=== PATIENT | female | born 1960 | race Two or more races ===

== ENCOUNTER → 2022-03-13 | Outpatient (CLI) | payer OTHER, SELFPAY ==
--- NOTE | 2022-03-13 | IMM_PTH ---
PATIENT: JORDON INMAN LOC: [facility] U#:[id number] AGE/SX: 62/F ROOM: RE03/13/[address]: Dr. Van Machuca MD : 1960 BED: DIS: 03/13/2022 SPEC #: [id number] RECD: 03/14/22 15:33 STATUS: STORM REDarryl #: [id number] MIGUEL: 03/13/22 00:[address]: Van Machuca DEPT: IMMUNOHISTOCHEMISTRY RECD BY: Maddy Chambers ENTERED: 03/14/22 15:34 SP TYPE: IMMUNO OTHR DR: CAROLYNN Rojas Tissues: A - Left breast, NOS Procedures: CALPONIN-1 (add) CK5-6 (add) CK8 (add) E-CAD (add) HER2 DOMITILA (add) KI-67 (add) P53 (add) KY (add) P40 (add) ER (initial) PHYSICIAN & [address] [address] SPECIMEN INFORMATION: Tissue Source: A ? Left breast core tissue 12 o?clock Clinical Info: Left breast calcifications 12 and 1 o?clock Specimen Number: [id number] A2 CPT code: 80241, 78428 x6, 42359 x3 METHODOLOGY: Deparaffinized sections of prefer/formalin-fixed tissue or PAP/DQ stained slides are incubated with monoclonal/polyclonal antibodies/oligonucleotide probes. Localization is made via biotin free immunoperoxidase method. Appropriate controls are performed and reacted as expected. Results on target cell population are indicated in the following table: RESULTS: ANTIBODY / CLONE RESULT Block A2 P53 (DO-7) negative Ki-67 (30-9) positive, moderate CK8 (85mfahY74) positive CK5-6 (D5 & 1684) positive * Calponin-1 (OL171G) positive * P40 (BC28) positive * E-Cad (ECH-6) positive *?Positive in myoepithelial cells. MORPHOMETRIC ANALYSIS ER (clone 6F11) positive (>95%, strong intensity) KY (clone 16/1E2) positive (variable, up to 82%, weak, moderate and strong intensity) Her-2Neu (clone CB11) negative (0) The prognostic test for HER2 is performed on formalin-fixed paraffin embedded tissue. A 3+ (positive) staining pattern is defined as intense, homogeneous, complete, circumferential membranous staining in >10% of contiguous tumor cells. A similar weak (2+) staining pattern is interpreted as equivocal. BEKA follow-up testing is recommended for all equivocal cases. Positivity/negativity for ER/KY is reported if > or < 1% of the tumor cells are immuno- reactive, respectively. The ASCO/CAP criteria is used for scoring. Reference: Journal of Clinical Oncology, 2013; 31:7902-1944 & 2010; 16:1896-8437. Duration of fixation: 8 Hrs; Sample Adequate: Yes. These assays have not been validated on decalcified tissues. Results should be interpreted with caution given the likelihood of false negativity on decalcified specimens. These tests were developed and their performance characteristics determined by [facility]. They may not have been cleared or approved by the U.S. Food and Drug Administration. The FDA has determined that such clearance or approval is not necessary. The above immunohistochemical/dualISH markers are ordered and reviewed by the Pathologist. 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 SJ:valerie 03/17/2022
--- NOTE | 2022-03-13 10:21 | HP.PCM_ITS ---
History and Physical Date of Admission: 03/13/22 Visit Reasons: BIRADS 4 LEFT BREAST Chief Complaint: left breast microcalcifications [employer] Veget[employer] Required: No Is patient in pain?: No Allergies No Known Allergies Allergy (Unverified 03/07/22 12:07) Medications ferrous sulfate 325 mg (65 mg iron) tablet 325 mg PO DAILY 03/07/22 [History Confirmed 03/07/22] multivitamin 1 tab PO DAILY 03/07/22 [History Confirmed 03/07/22] PFSH Medical History Low back pain Low vitamin D level Muscle spasm Osteopenia PMB (postmenopausal bleeding) Polyarthralgia Scar tissue Thrombocytosis Surgical History S/P S/P knee surgery Social History Smoking Status: Former smoker alcohol intake: never caffeine: Yes additional social history: Self employed-Farm HPI HPI HPI: CARLEE INMAN, is a 62 F who presents to the office today for consultation regarding abnormal left breast mammogram. The patient is referred by Kinsey Kennedy PA-C and a written copy of my surgical consult and r ecommendations will return to her 62-year-old female. G1, . Menarche at age 13. First child was born when she was 22. She did breast-feed. No previous breast biopsies. She has not been on any estrogen replacement therapy. Family history is negative for breast cancer. [facility] on [facility] 24, [facility]22 she had bilateral screening mammography. Right breast was felt to be unremarkable. The left breast had microcalcifications. Diagnostic images were obtained. Greater than 10 microcalcifications clustered left breast mid depth 12 o'clock position and the second area left breast mid depth 1 o'clock position. BI-RADS Category 4. Biopsy recommended. The patient's had no nipple discharge no distortion no bleeding. She otherwise enjoys good health She did experience Covid-10 November 2021. She was quite ill but did not require monoclonal antibody or hospitalization. She feels that she is recovered from her symptoms. ROS General General: No weight change, appetite, fatigue, colon cancer, breast cancer or weakness HEENT HEENT: No difficulty swallowing, eye injury, eye surgery, swollen glands or hoarseness Endo Endocrine: No thyroid disease, diabetes mellitus, thyroid cancer, Hair loss, heat intolerance or cold intolerance Skin Skin: No rash or changing moles Breast Breast: No left breast lump, right breast lump, nipple discharge, breast pain, abnormal mammogram, abnormal US or breast enlargement Musc Musculoskeletal: Yes arthritis; No back problems, rheumatoid arthritis, gout or joint pain Cardio Cardiovascular: No murmur, pacemaker, heart disease, atrial fibrillation, high blood pressure, heart attack, heart stent, palpitations, shortness of breat with exertion or chest pain Psych Psychiatric: No depression, anxiety or hearing voices Resp Respiratory: No shortness of breath, No sleep apnea, No cough, No COPD, No asthma, No emphysema and No wheezing Gastro Gastrointestinal: No abdominal pain, No nausea or vomiting, No diarrhea, No constipation, No blood in stool, No acid reflux, No hemorrhoids, No ulcers, No gallbladder problem and No black,tarry stools Edvin Hematologic: No blood thinners, No blood disorders, No bleeding, No anemia and No blood clots Neuro Neurologic: No system reviewed and no additional complaints, except as documented, No as per HPI, No abnormal gait, No abnormal hearing, No abnormal movements, No abnormal speech, No behavioral changes, No burning sensations, No confusion, No convulsions, No disequilibrium, No dizziness, No localized weakness, No frequent falls, No headache(s), No lack of coordination, No loss of vision, No memory loss, No numbness, No other visual disturbances, No radicular pain, No restless legs, No sensory deficit, No syncope, No tingling, No tremor(s), No weakness and No other Exam Const General: cooperative, healthy appearing, comfortable and no acute distress Nutritional Appearance: average body habitus Orientation: alert and awake [facility] Head: normal to inspection Eyes General: appearance normal, both eyes and all related structures Chest Other: Right breast: No focal mass. No nipple discharge. No axillary or clavicular adenopathy Left breast: No focal mass. No nipple discharge. No axillary clavicular adenopathy Resp Effort & Inspection: normal respiratory effort Auscultation: clear to auscultation bilaterally Cardio Rate: regular rate Rhythm: regular rhythm GI Palpation: soft and no hepatosplenomegaly Skin General: no rashes or lesions noted Neuro General: patient alert and patient awake Extrem General: normal to inspection Psych Appearance: grossly normal Assessment and Plan Assessment and Plan (1) Abnormal mammogram of left breast: Status: Acute Orders: Orders: Stereo Breast Biopsy 1st Lesio Today Plan Details Additional Comments: Abnormal mammogram with left breast microcalcifications at the 12 o'clock position and 1 o'clock position. I recommended the patient a stereotactic core biopsy of these areas and have discussed technique, benefit, risk and alternatives. She is present with her today. She has had an opportunity to ask and have questions answered. I very much appreciate the kind opportunity of assisting with her surgical care. We will schedule and expedite her treatment. Copy: NERY Rojas M.D., F.A.C.S. I have re-examined the patient. There are no clinical changes since date of exa mShayla Machuca M.D., F.A.C.S.
--- NOTE | 2022-03-13 11:30 | BRBX_PTH ---
PATIENT: JORDON INMAN LOC: [facility] U#:[id number] AGE/SX: 62/F ROOM: RE03/13/[address]: Dr. Van Machuca MD : 1960 BED: DIS: 03/13/2022 SPEC #: [id number] RECD: 03/13/22 12:47 STATUS: STORM [place]OU[place] #: [id number] MIGUEL: 03/13/22 11:[address]: Van Machuca DEPT: SURGICAL PATHOLOGY RECD BY: Mona Sheehan ENTERED: 03/13/22 13:39 SP TYPE: BREAST BX OTHR DR: CAROLYNN Rojas Tissues: A - Left breast, NOS B - Left breast, NOS Procedures: Surgery Specimen Level IV HEADER OPERATION: Left breast stereotactic biopsy x2 PRE-OP DIAGNOSIS: Calcifications left breast, 12 and 1 o?clock TISSUE SUBMITTED: A ? Left breast core tissue 12 o?clock, B - Left breast core tissue 1 o?clock ISCHEMIC TIME: 3 minutes FIXATION TIME: 8 hours MICROSCOPIC DIAGNOSIS A. Left breast, 12 o?clock, core biopsy: Ductal carcinoma in situ with the following characteristics: Nuclear Grade ? 3/3 Type ? papillary and cribriform with comedo necrosis. Maximal length ? 4.5 mm Microcalcifications ? present See comment. B. Left breast, 1 o?clock, core biopsy: Ductal carcinoma in situ with the following characteristics: Nuclear Grade ? 3/3 Type ? papillary and cribriform with comedo necrosis. Maximal length ? 4. mm Microcalcifications ? present AM:valerie 03/14/2022 COMMENT A. Immunohistochemistry ([id number]) supports the above diagnosis. Case has been reviewed in consultation with Dr. Bernard who concurs with the above diagnosis. IDC:SJ MICROSCOPIC DESCRIPTION Slides are reviewed. GROSS DESCRIPTION A - Received in fixative is one container labeled with the patient's name and designated left breast 12 o'clock. The specimen consists of multiple elongated fragments of francisco-yellow fibroadipose tissue that in aggregate measure 5 x 3 x 0.3 cm. The entire specimen is submitted in two cassettes. B - Received in fixative is one container labeled with the patient's name and designated left breast 1 o'clock. The specimen consists of multiple elongated fragments of francisco-yellow fibroadipose tissue that in aggregate measure 4 x 3 x 0.3 cm. The entire specimen is submitted in two cassettes. / SJ:rg 03/13/2022 TC:0 CPT: 35799 x2
--- NOTE | 2022-03-13 12:00 | PCM.OPRPT ---
Problems Associated Problem List Diagnoses (1) Abnormal mammogram of left breast: Report of Operation Date of Procedure: 03/13/22 Pre-Operative Diagnosis: Clustered microcalcifications left breast 12 o'clock position and left breast 1 o'clock position Post-Operative Diagnosis: Same Surgery/Procedure Performed:: Stereotactic needle core biopsy left breast #1 12 o'clock position and #2 1 o'clock position Description of Surgical Findings:: Timeout informed consent was obtained. The patient was taken stereotactic suite placed prone the table the left breast was placed in the cc view the 2 clustered microcalcifications biopsy #1 location is at 12:00 and biopsy #2 is at 1:00 positions were identified. Stereotactic images obtained. Digital information was obtained at target sites for 1 and 2. The breast was prepped with Betadine. 1% lidocaine was used for local anesthetic a total of 10 cc was used to stab incisions created a 10-gauge resolved needle was advanced to prefire depth prefire film obtained demonstrating alkalization the device was fired 6 cores were obtained for #1 specimen mammograms obtained no significant calcifications so 6 more cores were obtained and specimen mammograms were obtained this time demonstrating microcalcifications within the cores. A marking dumbbell clip was left in position. I retargeted and replaced clean equipment for lesion #2. Again local anesthetic was inserted. Stab incision created. The 10-gauge needle was advanced. Prefire films were obtained. Then 6 cores were obtained. Specimen mammograms obtained demonstrating adequate microcalcifications. A dumbbell marking clip was placed. On fast view demonstrated marked diminution in the number of calcifications at both sites. Marking clips in place. She was released from the device pressure was held for hemostasis Steri-Strips Telfa OpSite dressings applied. The cores were separately submitted in containers for analysis. Specimens breast core biopsies #1 and #2 for the 12:00 and 1 o'clock position. Blood loss minimal. Drains none. Van Machuca M.D., F.A.C.S. Surgeon: Van Machuca Type of Anesthesia: Local
== END | disposition home or self-care (01) ==
PROVIDERS: PCP Physician Assistant; Visit Provider Surgery
DX: D05.10 Intraductal carcinoma in situ of unspecified breast (principal); E55.9 Vitamin D deficiency, unspecified; Z79.899 Other long term (current) drug therapy; Z87.891 Personal history of nicotine dependence
CPT/HCPCS: 19081; 19082; 88305; 88341; 88342; J7050

== ENCOUNTER → 2022-03-17 | Outpatient (CLI) | payer OTHER, SELFPAY ==
--- NOTE | 2022-03-17 12:52 | US_ITS ---
INDICATION: PMB EXAMINATION: Ultrasound US Pelvis Non OB Complete With Transvaginal Imaging TECHNIQUE: Transabdominal and transvaginal pelvic ultrasound was performed. Grayscale, spectral waveform, and color flow Doppler evaluation of the adnexa. COMPARISON: None. FINDINGS: UTERUS: Retroverted. The uterus measures 6.7 x 5.8 x 4.0 cm. The endometrial stripe measures up to 3 cm in AP diameter and is abnormally thickened, heterogeneous in appearance, and hypervascular. There are a few small nabothian cysts in the cervix. RIGHT OVARY: Nonvisualized. No adnexal mass. LEFT OVARY: Nonvisualized. No adnexal mass. FREE FLUID: None. US/Transvaginal Non- IMPRESSION: Heterogeneous and hypervascular endometrium is abnormally thickened measuring up to 3 cm in width. Findings are concerning for endometrial mass and direct visualization is recommended. Electronically Signed: Nicho Mccarthy, at 16:03 EDT ,
--- NOTE | 2022-03-17 12:52 | US_ITS ---
INDICATION: PMB EXAMINATION: Ultrasound US Pelvis Non OB Complete With Transvaginal Imaging TECHNIQUE: Transabdominal and transvaginal pelvic ultrasound was performed. Grayscale, spectral waveform, and color flow Doppler evaluation of the adnexa. COMPARISON: None. FINDINGS: UTERUS: Retroverted. The uterus measures 6.7 x 5.8 x 4.0 cm. The endometrial stripe measures up to 3 cm in AP diameter and is abnormally thickened, heterogeneous in appearance, and hypervascular. There are a few small nabothian cysts in the cervix. RIGHT OVARY: Nonvisualized. No adnexal mass. LEFT OVARY: Nonvisualized. No adnexal mass. FREE FLUID: None. US/Pelvic (Non ) IMPRESSION: Heterogeneous and hypervascular endometrium is abnormally thickened measuring up to 3 cm in width. Findings are concerning for endometrial mass and direct visualization is recommended. Electronically Signed: Nicho Mccarthy, at 16:03 EDT ,
== END | disposition home or self-care (01) ==
PROVIDERS: PCP Physician Assistant; Visit Provider Obstetrics & Gynecology
DX: N95.0 Postmenopausal bleeding (principal)
CPT/HCPCS: 76830; 76856

== ENCOUNTER 2022-04-07 11:56 | Day surgery (SDC) | payer OTHER, SELFPAY ==
--- NOTE | 2022-04-03 13:01 | EKG12_ITS ---
Test Reason : PREOP Blood Pressure : / mmHG Vent. Rate : 086 BPM Atrial Rate : 086 BPM P-R Int : 156 ms QRS Dur : 086 ms QT Int : 354 ms P-R-T Axes : 061 014 049 degrees QTc Int : 423 ms Normal sinus rhythm Nonspecific T wave abnormality Abnormal ECG Confirmed by ALESSANDRO HALL, MICHAEL ([id number]), map editor NABIL MARISCAL ([id number]) on 04/04/2022 11:46:12 AM Referred By: Van Machuca Confirmed By:MICHAEL FRANCOIS MD
[2022-04-03 13:31] LABS: Absolute Lymphocyte Count 1.81 X10^3/uL (0.83-4.51); Absolute Neutrophil Count 5.4 X10^3/uL (2.0-7.7); Basophil# 0.04 X10^3/uL; Basophil% 0.5 % (0-1); Eosinophil# 0.09 X10^3/uL; Eosinophils% 1.1 % (0-5); Hematocrit 40.4 % (37-47); Hemoglobin 13.5 g/dL (12.0-15.0); Lymphocyte # 1.81 X10^3/ul (0.83-4.51); Lymphocyte % 22.6 % (19-41); Mean Corp Hgb Conc 33.4 g/dL (32-36); Mean Corpuscular Hgb 29.9 pg (27.0-32.0); Mean Corpuscular Volume 89.6 fL (81-99); Mean Platelet Vol. 8.8 fl (6.2-12.0); Monocyte# 0.62 X10^3/uL; Monocyte% 7.7 % (0-10); NRBC Flagged by Analyzer 0 % (0-5); Neutrophil # 5.43 X10^3/uL (2.7-7.7); Neutrophil % 67.9 % (47-70); Platelet Count 455 K/mm3 (150-450); RBC Distribution Width CV 13.1 % (11.6-14.6); RBC Distribution Width SD 42.8 fl (35.1-43.9); Red Blood Count 4.51 M/mm3 (4.2-5.4)
[2022-04-03 14:00] LABS: AST(SGOT) 14 U/L (15-37); Alanine Aminotransfer ALT/SGPT 18 U/L (13-56); Albumin, Serum 3.6 g/dL (3.2-5.0); Alkaline Phosphatase 74 U/L (45-117); Anion Gap 6 (5-15); BUN 20 mg/dL (7-18); BUN/Creat Ratio 24.2 RATIO (10-20); Calcium,Total 9.4 mg/dL (8.5-10.1); Chloride 106 mmol/L (98-107); Creatinine, Serum 0.83 mg/dL (0.55-1.02); EST Glomerular Filtration Rate 74 mL/min (>60); Est Glom Filt Rate - Afr Amer 90 mL/min (>60); Globulin 3.6 g/dL (2.2-4.2); Glucose 95 mg/dL (74-106); Potassium 3.9 mmol/L (3.5-5.1); Protein, Total 7.2 g/dL (6.4-8.2); Sodium Level 139 mmol/L (136-145)
--- NOTE | 2022-04-05 | BRBX_PTH ---
PATIENT: JORDON INMAN LOC: [facility] U#:[id number] AGE/SX: 62/F ROOM: RE04/07/[address]: Dr. Van Machcua MD : 1960 BED: DIS: 04/07/2022 SPEC #: [id number] RECD: 04/07/22 14:36 STATUS: STORM [place]IS #: [id number] MIGUEL: 04/05/22 00:[address]: Van Machuca DEPT: SURGICAL PATHOLOGY RECD BY: Tuan Agarwal ENTERED: 04/07/22 14:37 SP TYPE: BREAST BX OTHR DR: MD Kinsey Ruiz PA Tissues: A - Left breast, NOS Procedures: Surgery Specimen Level V HEADER OPERATION: Left breast stereotactic wire localized x2 locations lumpectomy PRE-OP DIAGNOSIS: Abnormal left breast mammogram TISSUE SUBMITTED: Left breast lumpectomy (long suture - lateral, short suture - superior, wires - anterior) MICROSCOPIC DIAGNOSIS Left breast, lumpectomy: Ductal carcinoma in situ. See cancer checklist below. AM:valerie 04/10/2022 COMMENT DUCTAL CARCINOMA IN SITU SUMMARY: Procedure ? partial breast/lumpectomy Specimen - partial breast Laterality ? left breast Size (extent of DCIS): Several foci of DCIS ranging from 1.0mm to 4.5mm in greatest dimension. Number of blocks involved by DCIS ? 7 of 12 blocks Architectural pattern ? cribriform, papillary and comedo Nuclear grade ? 3/3 Necrosis ? focally present Margins ? uninvolved by in situ carcinoma. Distance from closest margin ? 4.5 millimeters from inferior margin. Regional lymph nodes ? no lymph nodes submitted. Microcalcifications ? rare Additional Pathologic Findings ? intraductal hyperplasia with atypical intraductal hyperplasia, intraductal papilloma, fibrocystic change and changes of previous breast biopsy. Ancillary Studies from previous specimen ([id number] / [id number]): ER ? positive (>95%, strong intensity) NV ? positive (viable, up to 82%, weak, moderate and strong intensity) Her2 jorge (IHC) ? negative (0) Ki67 ? positive, moderate Clinical history ? left breast calcifications. Pathologic Staging: pT(DCIS) Nx Mx The above summary is in compliance with College of [employer] Pathology (CAP) Cancer Protocols Checklist and [place] Joint Committee on Cancer (AJCC), Staging Manual, 8th Ed. Reference is made to the patient's left breast, stereotactic biopsies from 12 and 1 o?clock, in which ductal carcinoma in situ, nuclear grade 3/3 was identified ([id number]). Case has been reviewed in consultation with Dr. Bernard who concurs with the above diagnosis. IDC:SJ MICROSCOPIC DESCRIPTION Slides are reviewed. GROSS DESCRIPTION Received fresh and post-fixed in formalin is one container labeled with the patient's name and designated left breast lumpectomy, long suture - lateral, short suture - superior, wires - anterior. The specimen consists of a piece of fibroadipose tissue with needle localization x2 measuring 8.5 x 5 x 3 cm. A piece of skin is noted anteriorly measuring 2 x 0.7 cm. The specimen is oriented as follows: long suture - lateral, short suture - superior, wires - anterior. Also present in the container are two detached pieces of francisco-yellow adipose tissue measuring in aggregate 3 x 2 x 0.5 cm. The specimen is inked as follows: anterior - yellow, posterior - black, superior - blue, inferior - green, medial - red and lateral - orange. Sections reveal francisco-yellow fibrous area in the area of needle localization. No obvious mass lesion is identified. Soc Analyst sections are submitted as follows: 1 - perpendicular superior, inferior and lateral margins, 2 - perpendicular anterior and posterior margins and skin, 3-9 - fibrous area in the area of needle localization, 10-12 - access representative sections from the other area. Sections are submitted after additional fixation. / SJ:valerie 04/08/2022 TC:0 CPT: 53239
[2022-04-07] VITALS (7 sets, daily range): BP systolic 110–124; BP diastolic 61–80; PULSE 69–99; RESP 16–18; TEMP 36.7–37.4; O2SAT 92–98; BMI 24.1
--- NOTE | 2022-04-07 | IMM_PTH ---
PATIENT: JORDON INMAN LOC: [facility] [place] U#:[id number] AGE/SX: 62/F ROOM: RE04/07/[address]: Dr. Van Machuca MD : 1960 BED: DIS: 04/07/2022 SPEC #: [id number] RECD: 04/09/22 12:37 STATUS: STORM REDarryl #: [id number] MIGUEL: 04/07/22 00:[address]: Chiquita Nails DEPT: IMMUNOHISTOCHEMISTRY RECD BY: Maddy Chambers ENTERED: 04/09/22 12:39 SP TYPE: IMMUNO OTHR DR: MD Kinsey Guillen PA Tissues: Endometrium, NOS Procedures: MSH2 (add) MLH-1 (add) MSH6 (add) Anti-PMS2 (add) KI-67 (add) P53 (add) HER-2-DOMITILA (initial) PHYSICIAN & INSTITUTION [address] [address] SPECIMEN INFORMATION: Tissue Source: Endometrial curettings Clinical Info: Postmenopausal bleeding Specimen Number: [id number] #6 [facility] code: 56289, 66566 x6 METHODOLOGY: Deparaffinized sections of prefer/formalin-fixed tissue or PAP/DQ stained slides are incubated with monoclonal/polyclonal antibodies/oligonucleotide probes. Localization is made via biotin free immunoperoxidase method. Appropriate controls are performed and reacted as expected. Results on target cell population are indicated in the following table: RESULTS: ANTIBODY / CLONE RESULT Block 6 Her-2neu (CB11) negative (1+) MLH-1 (M1) negative MSH2 (25D12) positive MSH6 (44) positive PMS2 (RKR1388) positive Ki-67 (30-9) positive, high P53 (DO-7) negative These tests were developed and their performance characteristics determined by [facility]. They may not have been cleared or approved by the U.S. Food and Drug Administration. The FDA has determined that such clearance or approval is not necessary. The above immunohistochemical/dualISH markers are ordered and reviewed by the Pathologist. INTERPRETATION: Endometrial curettings: Endometrial adenocarcinoma. Result of Microsatellite Instability Study: Positive (loss of mismatch protein; microsatellite instability detected). Complete loss of MLH1. SJ:valerie 04/10/2022
--- NOTE | 2022-04-07 11:53 | BI_ITS ---
SURGICAL BREAST SPECIMEN RADIOGRAPH CLINICAL: Document presence of tissue clip marker in biopsy specimen. FINDINGS: Specimen shows presence of tissue clip marker. Electronically Signed: Dakota Augustine MD at 14:30 EDT , BI/Breast Biopsy Specimen IMPRESSION: undefined
--- NOTE | 2022-04-07 12:29 | PCM.HP.BLA ---
History and Physical Date of Admission: 04/07/22 take Visit Reasons: Discuss lumpectomy Chief Complaint: Discuss lumpectomy Tractor Operator Helper Required: No Is patient in pain?: No Allergies No Known Allergies Allergy (Verified 03/31/22 14:09) Medications ferrous sulfate 325 mg (65 mg iron) tablet 325 mg PO DAILY 03/07/22 [History Confirmed 03/31/22] multivitamin 1 tab PO DAILY 03/07/22 [History Confirmed 03/31/22] PFSH Medical History (Updated 03/31/22 @ 14:[address] Van Machuca MD) Low back pain Low vitamin D level Muscle spasm Osteopenia PMB (postmenopausal bleeding) Polyarthralgia Scar tissue Thrombocytosis Surgical History (Updated 03/31/22 @ 14:06 by Prerna Thursday) History of left breast biopsy S/P S/P knee surgery Social History Smoking Status: Former smoker alcohol intake: never substance use type: does not use caffeine: Yes what type of physical activity do you participate in: none seatbelt use: always do you feel safe at home: Yes additional social history: - Bg Self employed-Farm HPI HPI HPI: JORDON INMAN, is a 62 F who presents to the office today for surgical follow-up of a stereotactic needle core left breast biopsy that I performed for her on March 13, 2022 detecting clustered microcalcifications left breast 12 o'clock position and secondary area left breast 1 o'clock position. It is of note that additionally Dr. Chiquita Nails is seen the patient for postmenopausal bleeding. 3 cm thickened lining of the uterus identified with recommendations for D&C hysteroscopy per Dr. Chiquita Nails at the same setting as her breast lumpectomy. MICROSCOPIC DIAGNOSIS A. Left breast, 12 o?clock, core biopsy:Ductal carcinoma in situ with the following characteristics: Nuclear Grade ?3/3 Type ?papillary and cribriform with comedo necrosis. Maximal length ?4.5 mm Microcalcifications ?presentSee comment. B. Left breast, 1 o?clock, core biopsy: Ductal carcinoma in situ with the followingcharacteristics: Nuclear Grade ?3/3Type ?papillary and cribriform with comedo necrosis. Maximal length ?4. mm Microcalcifications ?present Estrogen receptor positive greater than 95% Progesterone receptor positive variable up to 82% weak, moderate to strong intensity HER2/jorge 0 My previous notes reflect the following Visit Reasons: BIRADS 4 LEFT BREAST Chief Complaint: left breast microcalcifications Tractor Operator Helper Required: No Is patient in pain?: No Allergies No Known Allergies Allergy (Unverified 03/07/22 12:07) Medications ferrous sulfate 325 mg (65 mg iron) tablet 325 mg PO DAILY 03/07/22 [History Confirmed 03/07/22] multivitamin 1 tab PO DAILY 03/07/22 [History Confirmed 03/07/22] PFSH Medical History Low back pain Low vitamin D level Muscle spasm Osteopenia PMB (postmenopausal bleeding) Polyarthralgia Scar tissue Thrombocytosis Surgical History S/P S/P knee surgery Social History Smoking Status: Former smoker alcohol intake: never caffeine: Yes additional social history: Self employed-Farm HPI HPI HPI: CARLEE INMAN, is a 62 F who presents to the office today for consultation regarding abnormal left breast mammogram. The patient is referred by Kinsey Kennedy PA-C and a written copy of my surgical consult and recommendations will return to her 62-year-old female. G1, . Menarche at age 13. First child was born when she was 22. She did breast-feed. No previous breast biopsies. She has not been on any estrogen replacement therapy. Family history is negative for breast cancer. At [facility] on February 24, 2022 she had bilateral screening mammography. Right breast was felt to be unremarkable. The left breast had microcalcifications. Diagnostic images were obtained. Greater than 10 microcalcifications clustered left breast mid depth 12 o'clock position and the second area left breast mid depth 1 o'clock position. BI-RADS Category 4. Biopsy recommended. The patient's had no nipple discharge no distortion no bleeding. She otherwise enjoys good health She did experience Covid-10 November 2021. She was quite ill but did not require monoclonal antibody or hospitalization. She feels that she is recovered from her symptoms. ROS General General: No weight change, appetite, fatigue, colon cancer, breast cancer or weakness HEENT HEENT: No difficulty swallowing, eye injury, eye surgery, swollen glands or hoarseness Endo Endocrine: No thyroid disease, diabetes mellitus, thyroid cancer, Hair loss, heat intolerance or cold intolerance Skin Skin: No rash or changing moles Breast Breast: No left breast lump, right breast lump, nipple discharge, breast pain, abnormal mammogram, abnormal US or breast enlargement Musc Musculoskeletal: Yes arthritis; No back problems, rheumatoid arthritis, gout or joint pain Cardio Cardiovascular: No murmur, pacemaker, heart disease, atrial fibrillation, high blood pressure, heart attack, heart stent, palpitations, shortness of breat with exertion or chest pain Psych Psychiatric: No depression, anxiety or hearing voices Resp Respiratory: No shortness of breath, No sleep apnea, No cough, No COPD, No asthma, No emphysema and No wheezing Gastro Gastrointestinal: No abdominal pain, No nausea or vomiting, No diarrhea, No constipation, No blood in stool, No acid reflux, No hemorrhoids, No ulcers, No gallbladder problem and No black,tarry stools Edvin Hematologic: No blood thinners, No blood disorders, No bleeding, No anemia and No blood clots Neuro Neurologic: No system reviewed and no additional complaints, except as documented, No as per HPI, No abnormal gait, No abnormal hearing, No abnormal movements, No abnormal speech, No behavioral changes, No burning sensations, No confusion, No convulsions, No disequilibrium, No dizziness, No localized weakness, No frequent falls, No headache(s), No lack of coordination, No loss of vision, No memory loss, No numbness, No other visual disturbances, No radicular pain, No restless legs, No sensory deficit, No syncope, No tingling, No tremor(s), No weakness and No other Exam Const General: cooperative, healthy appearing, comfortable and no acute distress Nutritional Appearance: average body habitus Orientation: alert and awake [facility] Head: normal to inspection Eyes General: appearance normal, both eyes and all related structures Chest Other: Right breast: No focal mass. No nipple discharge. No axillary or clavicular adenopathy Left breast: No focal mass. No nipple discharge. No axillary clavicular adenopathy Resp Effort & Inspection: normal respiratory effort Auscultation: clear to auscultation bilaterally Cardio Rate: regular rate Rhythm: regular rhythm GI Palpation: soft and no hepatosplenomegaly Skin General: no rashes or lesions noted Neuro General: patient alert and patient awake Extrem General: normal to inspection Psych Appearance: grossly normal Assessment and Plan Assessment and Plan (1) Abnormal mammogram of left breast: Status: Acute Orders: Orders: Stereo Breast Biopsy 1st Lesio Today Plan Details Additional Comments: Abnormal mammogram with left breast microcalcifications at the 12 o'clock position and 1 o'clock position. I recommended the patient a stereotactic core biopsy of these areas and have discussed technique, benefit, risk and alternatives. She is present with her today. She has had an opportunity to ask and have questions answered. I very much appreciate the kind opportunity of assisting with her surgical care. We will schedule and expedite her treatment. Copy: NERY Rojas M.D., F.A.C.S. ROS General General: No weight change, appetite, fatigue, colon cancer, breast cancer or weakness HEENT HEENT: No difficulty swallowing, eye injury, eye surgery, swollen glands or hoarseness Endo Endocrine: No thyroid disease, diabetes mellitus, thyroid cancer, Hair loss, heat intolerance or cold intolerance Skin Skin: No rash or changing moles Breast Breast: No left breast lump, right breast lump, nipple discharge, breast pain, abnormal mammogram, abnormal US or breast enlargement Musc Musculoskeletal: Yes arthritis; No back problems, rheumatoid arthritis, gout or joint pain Cardio Cardiovascular: No murmur, pacemaker, heart disease, atrial fibrillation, high blood pressure, heart attack, heart stent, palpitations, shortness of breat with exertion or chest pain Psych Psychiatric: No depression, anxiety or hearing voices Resp Respiratory: No shortness of breath, No sleep apnea, No cough, No COPD, No asthma, No emphysema and No wheezing Gastro Gastrointestinal: No abdominal pain, No nausea or vomiting, No diarrhea, No constipation, No blood in stool, No acid reflux, No hemorrhoids, No ulcers, No gallbladder problem and No black,tarry stools Edvin Hematologic: No blood thinners, No blood disorders, No bleeding, No anemia and No blood clots Neuro Neurologic: No system reviewed and no additional complaints, except as documented, No as per HPI, No abnormal gait, No abnormal hearing, No abnormal movements, No abnormal speech, No behavioral changes, No burning sensations, No confusion, No convulsions, No disequilibrium, No dizziness, No localized weakness, No frequent falls, No headache(s), No lack of coordination, No loss of vision, No memory loss, No numbness, No other visual disturbances, No radicular pain, No restless legs, No sensory deficit, No syncope, No tingling, No tremor(s), No weakness and No other Assessment and Plan Assessment and Plan (1) Ductal carcinoma in situ (DCIS) of left breast: Status: Acute Plan - Dr. Van Machuca MD: 62-year-old female. Recent stereotactic needle core biopsy 2 areas of microcalcifications left breast 12:00 1 o'clock position post demonstrate DCIS with comedonecrosis and ER/MO positive. HER2/jorge negative. I recommend to her a double stereotactic wire localization left breast with wire localized left breast lumpectomy and I discussed technique, benefit, risk and alternatives. She is aware that postprocedural medical oncology and radiation oncology consultations and treatment will be recommended. She is aware of the technique, benefit, risk, alternatives. She is to have gynecologic procedure performed by Dr. Chiquita Nails and I do believe that that can be accomplished the same day. We will schedule and coordinate as appropriate. She has had an opportunity to ask and have questions answered. She is relieved that this can be accomplished locally for her. Copy: CAROLYNN Rojas and Dr. Chiquita Machuca M.D., F.A.C.S. I have re-examined the patient. There are no clinical changes since date of exam. Van Machuca M.D., F.A.C.S.
[2022-04-07] MEDS: Lactated Ringers 1,000 ML 15 ML IV ×3 (12:35→16:04)
--- NOTE | 2022-04-07 13:06 | OP.PCM_ITS ---
Problems Associated Problem List Diagnoses (1) Ductal carcinoma in situ (DCIS) of left breast: Report of Operation Date of Procedure: 04/07/22 Pre-Operative Diagnosis: Ductal carcinoma in situ upper mid left breast Post-Operative Diagnosis: Same Surgery/Procedure Performed:: Stereotactic wire localization x2 upper mid left breast with subsequent wire localized lumpectomy Description of Surgical Findings:: Timeout informed consent was obtained. 62-year-old female was taken to the mammography suite placed prone on the table the left breast was placed in the cc view the 2 marking clips in question were identified breast was prepped with Betadine targeted information was obtained in both of the lesions 1% lidocaine was used as local anesthetic 1 cc was used 20- gauge Kopan's needle was advanced to depth +15 mm. Wires were subsequently placed. Tape and sterile dressings applied. Follow-up lateral views demonstrated adequate position. The patient was subsequently taken to the operating room. She underwent general anesthesia. The left breast was sterilely prepped and draped. A curvilinear incision was created so as to incorporate both wire localization areas. Clean procedure no antibiotics required. A elliptical excision of skin was performed shows to incorporate both wire localized areas upper mid left breast. Electrocautery dissection performed down into the subcu tissue and breast tissue. A wire localized lumpectomy performed down to pectoralis fascia. The areas marked by the wires were completely removed. Hemostasis was obtained with electrocautery. A long suture was placed laterally the wires were exiting anteriorly and a short suture was placed superiorly. Specimen mammogram was obtained suggesting that the 2 previously placed marking dumbbells were in correct position. Wires appropriately removed. There was 1 small calcification medially. It appeared that the area of question had been completely resected. By visualization inspection I did not see any residual tissue that was felt to be of concern. 4 small hemoclips were placed at the extent of the resection to tali the biopsy cavity. The periincisional area was anesthetized with 30 cc of 0.5% Marcaine. The biopsy cavity was approximated with a couple layers of interrupted 3-0 Vicryl and the skin was approximated with running subicular 4-0 Monocryl. Steri-Strips Telfa OpSite bulky dry dressings applied. Sponge and instrument and needle counts were reported to the surgeon to be correct. Specimen upper mid left breast lumpectomy. Drains none. Blood loss minimal. Van Machuca M.D., F.A.C.S. Surgeon: Van Machuca Type of Anesthesia: General and Local Anesthesiologist: Chelsea Muñoz
--- NOTE | 2022-04-07 13:13 | EX.PCM.DISCH ---
Discharge Instructions Procedure Breast Surgery Diet Discharge Diet: No restrictions Activity Discharge Activity: May Not Drive (for 2-3 days or while taking narcotic pain meds.) May shower in (days): 1 Lifting Restrictions: 10 pounds for 1 week. Dressing / Incision Call your doctor if your incision/area has: Continuous Slow Oozing and Sudden Increased Bleeding Call your doctor if you observe: Fever of 101 or Higher Suture Line Care: Avoid Pulling/Pushing and Avoid Pinching/Bending Remove Dressing in: 1 day Additional Dressing/Incision Instructions:: Remove bulky dressing tomorrow. May leave any opsite dressing for 3-4 days. Keep dressing in place until your follow-up appointment. Follow Up Care Test Results: Test results from this visit will be discussed in further detail at your follow-up appointment, if applicable. Discharge Plan Admission Primary Reason for Your Visit: Ductal carcinoma in situ upper mid left breast Attending Provider: Van Machuca Primary Care Provider: Kinsey Kennedy Consulting Providers: Chiquita Nails Discharge Orders/Prescriptions Prescriptions: New hydrocodone-acetaminophen 5-325 mg tablet 1 tab PO Q6H PRN (Reason: pain) 2 Days Qty: 5 RF: 0 Continued multivitamin Tablet 1 tab PO DAILY RF: 0 ferrous sulfate [FeroSul] 325 mg (65 mg iron) tablet 325 mg PO DAILY RF: 0 Referrals / Follow Up: Kinsey Kennedy PA [Primary Care Provider] - Disposition Disposition (needs filled in before D/C Order can be placed): Home, Self Care
--- NOTE | 2022-04-07 13:16 | PCM.HP.BLA ---
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 Is patient in pain?: No Allergies No Known Allergies Allergy (Verified 03/07/22 13:04) Medications ferrous sulfate 325 mg (65 mg iron) tablet 325 mg PO DAILY 03/07/22 [History Confirmed 03/25/22] multivitamin 1 tab PO DAILY 03/07/22 [History Confirmed 03/25/22] Is last menstrual period known: No Post menopausal: Yes Patient : No : No PFSH Medical History Low back pain Low vitamin D level Muscle spasm Osteopenia PMB (postmenopausal bleeding) Polyarthralgia Scar tissue Thrombocytosis Surgical History S/P S/P knee surgery Social History Smoking Status: Former smoker alcohol intake: never substance use type: does not use caffeine: Yes what type of physical activity do you participate in: none seatbelt use: always do you feel safe at home: Yes 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 she has intermittent postmenopausal red bleedign with some clots, ad then days she won't have any, she has had this for 6 months. She has also following up with Dr. Machuca next week for an abnormal breast biopsy. She denies any pelvic pain or pressure. Female Reproductive History Menopausal Symptoms: No hot flashes, No night sweats and No difficulty concentrating Pregancy History 1 Elective abortions Hx Para 1 Spontaneous abortions Hx # Term Pregnancies Ectopic pregnancies Hx # Pregnancies Multiple births # of living children Past Pregnancies Del. Date Name GA/Weeks Outcome Route Bth Weight Gen Labor Lgth Anesthesia Del Locatn Provider FOB Unknown Myke Sow Constitutional: Reports weight loss; Denies fatigue, night sweats or weight gain ENT ENT: Reports system reviewed and no additional complaints, except as documented Cardio Card: Denies chest pain Resp Resp: Denies cough or dyspnea GI GI: Reports as per HPI; Denies constipation, nausea or vomiting : Reports as per HPI and vaginal dryness; Denies hot flashes, nipple discharge, vaginal discharge, vaginal odor or vaginal pruritus Musc Musc: Reports arthralgias; Denies back pain or muscle weakness Skin Skin/Breast: Denies alopecia, change in hair, dry skin, breast mass, breast pain, breast skin changes or nipple discharge Neuro Neuro: Reports system reviewed and no additional complaints, except as documented Psych Psych: Reports system reviewed and no additional complaints, except as documented; Denies difficulty concentrating Endo Endo: Denies cold intolerance, excessive sweating, heat intolerance or polydipsia Edvin/Lymph Hematologic/Lymphatic: Denies easy bleeding, Denies easy bruising and Denies lymphadenopathy Exam Const General: cooperative, healthy appearing, comfortable, no acute distress and well developed Orientation: alert [facility] Head: normal to inspection and normocephalic Ears: hearing grossly normal bilaterally and external ears normal Nose: external nose normal and nares normal Face and sinus: normal facial exam Neck Neck: normal visual inspection and no lymphadenopathy Thyroid: thyroid normal Chest Chest palpation & inspection: normal inspection of the chest Resp Effort & Inspection: normal respiratory effort Auscultation: clear to auscultation bilaterally Cardio Rate: regular rate Rhythm: regular rhythm Heart Sounds: S1 normal and S2 normal GI Inspection: normal to inspection and non-distended Palpation: soft and no hepatosplenomegaly Musc Other: gross motor intact no deficits, full bilateral strength Skin General: no rashes or lesions noted Neuro General: patient alert, patient awake, moves all extremities and no focal motor deficits Motor: muscle tone normal throughout Extrem General: normal to inspection and no pedal edema Psych Appearance: grossly normal Mental Status: mental status grossly normal Affect: normal affect Speech and Movement: speech and movement normal Coding Level of Care Code Off vis,est,level 4 Diagnoses PMB (postmenopausal bleeding) N95.0 Assessment and Plan Assessment and Plan (1) PMB (postmenopausal bleeding): Status: Acute Comment: 3 cm thickened lining proceed with D&C hysteroscopy symphion plan combo case with Dr. hanane Bar - Dr. Chiquita Nails MD: After discussing the patient's diagnosis and treatment plan options, patient wishes to proceed with surgical management. I have discussed with the patient the risks, benefits, and alternatives of the procedure which include but are not limited to risks of anesthesia, bleeding, infection, possible damage to bowel, bladder, or surrounding vasculature which could lead to additional surgery to evaluate any complications. Patient agrees to procedure and wishes to proceed. ACOG/uptodate references given for additional information regarding procedure. UPDATE- I have seen the patient and performed any clinically relevant updates to the history and physical exam. Chiquita Nails MD
--- NOTE | 2022-04-07 13:16 | PCM.OPRPT ---
Problems Associated Problem List Diagnoses (1) Ductal carcinoma in situ (DCIS) of left breast: (2) PMB (postmenopausal bleeding): Report of Operation Date of Procedure: 04/07/22 Pre-Operative Diagnosis: see problem list Post-Operative Diagnosis: same Surgery/Procedure Performed:: D&C hysteroscopy polypectomy using symphion Surgeon: Chiquita Nails employment instructional associate: None Type of Anesthesia: Local MAC Special Medications: none Specimen's removed: EMC, polyp Drains: none Estimated Blood Loss (mL): 50 Fluids Replaced: crystalloid Description of Procedure: Patient was prepped and draped in a normal sterile fashion under MAC anesthesia. A weighted speculum was placed in the vagina and the anterior lip of the cervix was grasped with a single-tooth tenaculum. A paracervical block was placed with 1% lidocaine. Cervix was progressively dilated to allow passage of a 5 mm hysteroscope. The lining was fully visualized and noted to have a thickened irregular posterior lining . Uterine sounded to 9 cm. Using the symphion device, the posteiror lesions were progressively removed without complications. Direct visual curettage was performed using the device , and all specimens were sent to pathology. All instruments were removed from the vagina and excellent hemostasis was noted. Patient was awoken and taken to recovery in stable condition. Grafts/Implants Used: none Complications none Admit VTE Documentation VTE Present on Admission: No VTE Mechan Device Prophylaxis: SCD's Multi Select Codes Urinary/Genital Urinary/Genital CPT Codes: 02068 Hysteroscopy,EMC, Polypectomy
--- NOTE | 2022-04-07 13:17 | PCM.DC ---
Discharge Instructions Diet Discharge Diet: No restrictions Activity Discharge Activity: Return to Normal Activity, May Shower and May Take a Tub Bath (after 1 week) May shower in (days): 1 May resume sexual activity in: 1-2 weeks Weight Bearing Status: Weight bearing as tolerated Lifting Restrictions: none Dressing / Incision Call your doctor if your incision/area has: Continuous Slow Oozing and Sudden Increased Bleeding Call your doctor if you observe: Fever of 101 or Higher Suture Line Care: Avoid Pulling/Pushing and Avoid Pinching/Bending Additional Dressing/Incision Instructions:: Remove bulky dressing tomorrow. May leave any opsite dressing for 3-4 days. Keep dressing in place until your follow-up appointment. Follow Up Care Please Follow Up With: Chiquita Nails MD When: Call [phone] to schedule appointment. Test Results: Test results from this visit will be discussed in further detail at your follow-up appointment, if applicable. Discharge Plan Admission Primary Reason for Your Visit: Ductal carcinoma in situ upper mid left breast Attending Provider: Van Machuca Primary Care Provider: Kinsey Kennedy Consulting Providers: Chiquita Nails Discharge Orders/Prescriptions Prescriptions: New hydrocodone-acetaminophen 5-325 mg tablet 1 tab PO Q6H PRN (Reason: pain) 2 Days Qty: 5 RF: 0 Continued multivitamin Tablet 1 tab PO DAILY RF: 0 ferrous sulfate [FeroSul] 325 mg (65 mg iron) tablet 325 mg PO DAILY RF: 0 Referrals / Follow Up: Kinsey Kennedy PA [Primary Care Provider] - Disposition Disposition (needs filled in before D/C Order can be placed): Home, Self Care
[2022-04-07] MEDS: Bupivacaine Mpf 0.5% 30 ML VIAL (13:43)
--- NOTE | 2022-04-07 15:08 | EMB_PTH ---
PATIENT: JORDON INMAN LOC: [facility] [place] U#:[id number] AGE/SX: 62/F ROOM: RE04/07/[address]: Dr. Van Machuca MD : 1960 BED: DIS: 04/07/2022 SPEC #: [id number] RECD: 04/07/22 15:22 STATUS: STORM REDarryl #: [id number] MIGUEL: 04/07/22 15:[address]: Chiquita Nails DEPT: SURGICAL PATHOLOGY RECD BY: Mona Sheehan ENTERED: 04/08/22 11:14 SP TYPE: ENDOM BX/C OTHR DR: MD Dr. Tru Guillen MD Dr. Sharon Marcanthony, MD Melissa Palmer, PA Tissues: Endometrium, NOS Procedures: Frozen Section (charge) Surgery Specimen Level IV Comments: @ Ordering doctor for FSC edited from to @ by CRYSTAL at 04/08/22 1313 @ Ordering doctor for SUIV edited from to @ by CRYSTAL at 04/08/22 1313 @ Submitting doctor edited from to @ by CRYSTAL at 04/08/22 1313 HEADER OPERATION: Hysteroscopy, D & C Symphion PRE-OP DIAGNOSIS: Postmenopausal bleeding TISSUE SUBMITTED: Endometrial curettings, frozen section FROZEN SECTION DIAGNOSIS Endometrial curettings: Endometrial adenocarcinoma. SJ:valerie 04/08/2022 MICROSCOPIC DIAGNOSIS Endometrial curettings: Endometrial adenocarcinoma, endometrioid type, FIGO grade 2. See comment. SJ:valerie 04/09/2022 COMMENT The tumor shows extensive necrosis. The tumor also shows focal area of papillary architecture and clear cell features. Immunohistochemistry ([id number]) for microsatellite instability (mismatch repair of protein) will be performed and the results will be reported separately. This case was reviewed and diagnosis discussed with Dr. Tru Cohen from [facility] on 04/09/2022. Case has been reviewed in consultation with Dr. Tejada who concurs with the above diagnosis. IDC:AM MICROSCOPIC DESCRIPTION Slides are reviewed. GROSS DESCRIPTION Received fresh for frozen section diagnosis labeled with the patient's name is a specimen designated endometrial curettings. The specimen consists of multiple pieces of francisco-white to pink soft tissue that in aggregate measure 5 x 3 x 1 cm. Coat Padder tissue is submitted for frozen section diagnosis. The entire specimen is submitted in six cassettes as follows: 1 - frozen section, 2-6 - rest of the specimen. / SJ:valerie 04/08/2022 TC:0 [facility]: [id number]
== END 2022-04-07 17:47 | disposition home or self-care (01) ==
LOC: SDC 11:57 → AC 11:58
PROVIDERS: Obstetrics & Gynecology; PCP Physician Assistant; Referring Provider Surgery; Visit Provider Surgery
PROC: (CPT 19301; principal; 2022-04-07 13:15)
PROC: 0UB98ZZ Excision of Uterus, Via Natural or Artificial Opening Endoscopic (ICD-10-PCS; CPT 58558; 2022-04-07 13:15)
DX: N95.0 Postmenopausal bleeding (principal); D05.12 Intraductal carcinoma in situ of left breast; Z87.891 Personal history of nicotine dependence; Z17.0 Estrogen receptor positive status [ER+]
CPT/HCPCS: 58558; 00952; 19301; 19281; 36415; 76098; 80053; 85025; 86850; 86900; 86901; 88305; 88307; 88331; 88341; 88342; 93005; J7120; J2405

== ENCOUNTER → 2022-06-10 | Outpatient (CLI) | payer OTHER, SELFPAY ==
--- NOTE | 2022-06-10 13:55 | BD_ITS ---
STUDY: DUAL ENERGY X-RAY ABSORPTIOMETRY / DXA REASON FOR EXAM: Female, 62 years old. OSTEOPENIA TECHNIQUE: Bone Mineral Density (BMD) measurements of lumbar spine and bilateral hips were obtained. COMPARISON: None. FINDINGS: Lumbar Spine (L1-L4): g/cm2 (0.841) / T-score (-2.4) / Z-score (-0.7) Findings are suggestive of osteopenia with a high fracture risk. Left Femur Total: g/cm2 (0.659) / T-score (-2.3) / Z-score (-1.2) Left Femoral Neck: g/cm2 (0.521) / T-score (-3.0) / Z-score (-1.6) Right Femur Total: g/cm2 (0.686) / T-score (-2.1) / Z-score (-1.0) Right Femoral Neck: g/cm2 (0.499) / T-score (-3.2) / Z-score (-1.8) BD/Dexa Bone Density Study IMPRESSION: The patient is considered osteoporotic as outlined below according to World Vishal Organization (WHO) criteria with a high fracture risk. Reference Information: The T-score is the number of standard deviations above or below the standard which is normal for young adults at their peak bone mineral density. The World Health Organization (WHO) interprets the T-scores as follows: Above -1 Normal bone density Between -1 and -2.5 Osteopenia Equal to / or below -2.5 Osteoporosis As a practical clinical guideline, osteopenia may be graded as follows: Mild -1 through -1.5 Moderate -1.6 through -2.0 Severe -2.1 through -2.4 The Z-score is the number of standard deviations above or below age-matched controls. A Z-score of less than -1.5 would be considered abnormal. References: 1. NIH Osteoporosis and Related Bone Diseases www osteo.org 2. International Society for Clinical Densitometry www iscd.org 3. National Osteoporosis Foundation www nof.org Electronically Signed: Dakota Augustine MD at 15:37 EDT ,
== END | disposition home or self-care (01) ==
LOC: OPBD 13:36
PROVIDERS: PCP Physician Assistant; Visit Provider Internal Medicine Medical Oncology
DX: M81.0 Age-related osteoporosis without current pathological fracture (principal); M85.80 Other specified disorders of bone density and structure, unspecified site; D05.12 Intraductal carcinoma in situ of left breast
CPT/HCPCS: 77080

== ENCOUNTER 2022-08-04 10:21 | Emergency (ER) | payer OTHER, SELFPAY ==
[2022-08-04 10:22] VITALS: BP 129/73; PULSE 97; RESP 16; TEMP 36.6; O2SAT 98; BMI 25.0
--- NOTE | 2022-08-04 10:44 | EDS_ITS ---
HPI History of Present Illness Chief Complaint: Other, Pain/Inj Narrative Narrative: Patient was pinned between a wall and a cow resulting in chest wall and back pain. No head injury no neck pain no hip injury. [facility] Medical History Arthritis Encounter for education ER+ (estrogen receptor positive status) Low back pain Low vitamin D level Muscle spasm Non-smoker Osteopenia Osteoporosis PMB (postmenopausal bleeding) Polyarthralgia Post-menopausal Scar tissue Thrombocytosis Home Medications ferrous sulfate 325 mg (65 mg iron) tablet (FeroSul) 325 mg PO DAILY 03/07/22 [History Last Taken Unknown] multivitamin 1 tab PO DAILY 03/07/22 [History Last Taken Unknown] tamoxifen 20 mg tablet 20 mg PO DAILY #30 tabs 06/30/22 [Rx Last Taken Unknown] Allergy/AdvReac Type Severity Reaction Status Date / Time No Known Allergies Allergy Verified 08/04/22 10:24 Surgical History History of hysterectomy History of left breast biopsy S/P S/P knee surgery Social History Smoking Status: Never smoker alcohol intake: never substance use type: does not use caffeine: Yes what type of physical activity do you participate in: none seatbelt use: always do you feel safe at home: Yes 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 ROS ED ROS Narrative Social: Noncontributory Medications: Reviewed Past medical history: Reviewed Review of systems General: Patient has no head injury or loss of consciousness HEENT: No facial injury Neck: No neck pain Cardiovascular: Patient denies any chest pain or palpitations Chest wall: Rib pain as in HPI Respiratory: There is no shortness of breath GI: There is no nausea vomiting diarrhea or abdominal pain, no abdominal wall contusions Skin: No lacerations or abrasions Neurological: Patient has no memory loss, confusion, or any focal weakness Psychiatric: No recent behavioral changes Back: Left-sided back pain mostly in the rib region Musculoskeletal: No extremity injury All other systems are reviewed and normal EXAM Physical Exam Narrative Exam Narrative: Physical exam Vitals reviewed General: Does not appear in significant distress, no obvious injuries HEENT: No facial injury Head: No head injury Eyes: Extraocular movements intact Neck: No C-spine tenderness with full range of motion Heart: Regular rate normal pulses Chest wall: Left-sided lower rib pain, that extends into the lower ribs on the left. No obvious contusions or step-offs. Lungs clear lungs bilaterally with normal inspiration and expiration without tachypnea GI: Abdomen is soft and nontender there is no mass no guarding no abdominal wall contusion : Stable pelvis Musculoskeletal: Moves all extremities without any signs of trauma Back: There is some tenderness mostly in the rib region and the left lower ribs. Skin: No abrasions or laceration Neurological: Patient is alert and oriented with no focal deficits Const Vital Signs: 08/04/22 10:22 Temperature 97.8 F Temperature Source Temporal Pulse Rate 97 Respiratory Rate 16 Blood Pressure 129/73 H Blood Pressure Mean 91 Pulse Ox 98 Oxygen Delivery Method Room Air MDM MDM MDM Narrative Medical decision making narrative: Patient has normal x-ray, there is seems to be no intra abdominal pathology. I will discharge with reassurance. Radiography Diagnostic Testing: Clinical Impression(s) from Imaging Studies Ribs w/Chest X-Ray 08/04/22 10:53 IMPRESSION: RIBS: Normal x-ray examination of the ribs. CHEST: Degenerative changes, as described above. No demonstrated acute cardiopulmonary process. Electronically Signed: Rikki Gale MD at 11:25 EDT Reading Location ID and State: [address] [place] [address] , Service support , Bedside ultrasound shows normal kidney and normal spleen. The rest of the FAST exam is normal without any fluid. X-ray ribs read by me and radiologist does not show any fracture. Discharge Plan Triage Chief Complaint: Other, Pain/Inj ED Provider: Ronald Whitlock Dx/Rx/DC Orders Clinical Impression: Contusion of rib, Chest wall contusion Instructions: ED Bruise, Rib Prescriptions: No Action multivitamin Tablet 1 tab PO DAILY ferrous sulfate [FeroSul] 325 mg (65 mg iron) tablet 325 mg PO DAILY tamoxifen 20 mg tablet 20 mg PO DAILY Qty: 30 1RF Primary Care Provider: Kinsey Kennedy Referrals: Kinsey Kennedy, CAROLYNN [Primary Care Provider] - 3-5 Days Disposition Disposition: Home, Self Care
--- NOTE | 2022-08-04 10:53 | RAD_ITS ---
STUDY: X-RAY - UNILATERAL RIBS ( LEFT ) WITH CHEST REASON FOR EXAM: Female, 62 years old. trauma TECHNIQUE - RIBS: 2 view(s) of the ribs. TECHNIQUE - CHEST: Single AP portable view of the chest. COMPARISON: None. FINDINGS - RIBS: Normal visualized ribs without a demonstrated fracture. No pneumothorax is seen. FINDINGS - CHEST: The lungs are clear and expanded. There is no demonstrated pleural abnormality. Normal size heart. Normal mediastinum and jess. Normal visualized pulmonary arteries. There is atherosclerotic tortuosity of the aortic arch and descending thoracic aorta. There are diffuse degenerative changes of the visualized thoracic spine. Normal visualized ribs, clavicles, and shoulders. There is no demonstrated abnormality of the visualized soft tissue structures of the upper abdomen. Surgical clips project over the left lower lobe. RAD/Ribs Uni Min 3V w/PA Chest IMPRESSION: RIBS: Normal x-ray examination of the ribs. CHEST: Degenerative changes, as described above. No demonstrated acute cardiopulmonary process. Electronically Signed: Rikki Gale MD at 11:25 EDT ,
[2022-08-04 11:45] VITALS: BP 125/72; PULSE 87; RESP 16; O2SAT 98
== END 2022-08-04 11:49 | disposition home or self-care (01) ==
PROVIDERS: Emergency Provider Emergency Medicine; PCP Physician Assistant; Visit Provider Emergency Medicine
DX: S20.219A Contusion of unspecified front wall of thorax, initial encounter (principal); S20.20XA Contusion of thorax, unspecified, initial encounter; W55.89XA Other contact with other mammals, initial encounter
CPT/HCPCS: 71101; 99282

== ENCOUNTER → 2022-09-19 | Outpatient (CLI) | payer OTHER, SELFPAY ==
--- NOTE | 2022-09-19 14:07 | CT_ITS ---
STUDY: CT ABDOMEN AND PELVIS WITH CONTRAST REASON FOR EXAM: Female, 62 years old. h/o endometrial ca, new abdominal discomfort RADIATION DOSAGE (If Supplied By Facility): CTDIvol = ( 5.79 ) mGy, DLP = ( 303.26 ) mGycm TECHNIQUE: Transaxial images were obtained from the dome of the diaphragm to the symphysis pubis without oral contrast. IV 100mL Isovue-300 was administered. Sagittal and coronal images were reconstructed. Individualized dose optimization techniques were used for this CT. COMPARISON: None. FINDINGS: The visualized lung bases are unremarkable. The visualized portions of the heart are within normal limits. Nonspecific fatty infiltrated liver. There are tiny hypoattenuated subcentimeter nodules in the left and right lobes which are too small to characterize.. Bile ducts are nondilated.. Normal spleen. Normal pancreas. Normal bilateral adrenal glands. Normal right kidney. Normal left kidney. Normal visualized stomach. Normal small intestine. Normal colon. The appendix is visualized and appears normal. Normal abdominal aorta. Normal inferior vena cava. Normal retroperitoneum. Poorly distended thick-walled prolapsed bladder Uterus not visualized consistent with hysterectomy Normal abdominal wall. Lumbar spine demonstrates mild spondylosis CT/Abdomen/Pelvis WITH Contrast IMPRESSION: Hypoattenuated nodules in the right and left lobes of the liver of uncertain etiology MRI would be helpful for further evaluation to exclude possibility of metastatic disease if clinically warranted. Postsurgical changes status post hysterectomy.. No acute abnormalities. Electronically Signed: Caleb Saldivar MD at 20:34 EDT ,
== END | disposition home or self-care (01) ==
LOC: CT 13:23
PROVIDERS: PCP Physician Assistant; Referring Provider Nurse Practitioner Family; Visit Provider Nurse Practitioner Family
DX: R10.9 Unspecified abdominal pain (principal); C54.1 Malignant neoplasm of endometrium
CPT/HCPCS: 74177; Q9967

== ENCOUNTER → 2022-10-13 | Outpatient (CLI) | payer OTHER, SELFPAY ==
[2022-10-13 17:10] LABS: NATERA MAILED SPECIMEN
== END | disposition home or self-care (01) ==
LOC: PAVLAB 15:46
PROVIDERS: PCP Physician Assistant; Referring Provider Obstetrics & Gynecology; Visit Provider Obstetrics & Gynecology
DX: D05.12 Intraductal carcinoma in situ of left breast (principal)
CPT/HCPCS: 36415

== ENCOUNTER 2022-12-30 13:40 | Day surgery (SDC) | payer OTHER, SELFPAY ==
[2022-12-30] VITALS (8 sets, daily range): BP systolic 86–118; BP diastolic 43–68; PULSE 82–107; RESP 16–18; TEMP 36.8–37.2; O2SAT 97–99; BMI 24.0
--- NOTE | 2022-12-30 13:51 | HP.PCM_ITS ---
History and Physical Date of Admission: 12/30/22 Intake Vital Signs ? 12/17/2308:08 12/24/2308:15 Height 4 ft 11 in 4 ft 11 in Weight: 119 lb 1.993 oz 119 lb 4 oz BMI 24.0 24.0 BP ? 114/79 Blood Pressure Location ? Rt brachial Position ? Sitting Respiration ? 17 Pulse ? 108 H Pulse Source ? Monitor Temp ? 97.1 F L Temp Source ? Temporal Pulse Oximetry (%) ? 98 Oxygen Delivery Method ? room air Intake Visit Reasons:?PORT PLACEMENT Chief Complaint: port placement Allergies No Known Allergies Allergy (Verified 12/24/22 09:16) Medications multivitamin 1 tab PO DAILY 03/07/22 [History Confirmed 12/24/22] calcium carbonate 600 mg-vitamin D3 25 mcg (1,000 unit) capsule 1 cap PO DAILY 08/04/22 [History Confirmed 12/24/22] tamoxifen 20 mg tablet 20 mg PO DAILY #90 tabs 08/25/22 [Rx Confirmed 12/24/22] ondansetron 8 mg disintegrating tablet 8 mg PO Q8H PRN nausea and vomiting #30 tabs 11/25/22 [Rx Confirmed 12/24/22] prochlorperazine maleate 10 mg tablet 10 mg PO Q6H PRN nausea and vomiting #30 tabs 11/25/22 [Rx Confirmed 12/24/22] PFSH Medical History? Abdominal discomfort Abnormal findings on diagnostic imaging of liver and biliary tract Arthritis CINV (chemotherapy-induced nausea and vomiting) Encounter for education ER+ (estrogen receptor positive status) Genetic testing of female Lesion of liver with high risk for malignant neoplasm Low back pain Low vitamin D level Muscle spasm Non-smoker Osteopenia Osteoporosis PMB (postmenopausal bleeding) Polyarthralgia Post-menopausal Scar tissue Thrombocytosis Surgical History? History of hysterectomy History of left breast biopsy S/P S/P knee surgery Social History? Smoking Status:? Never smoker alcohol intake:? never substance use type:? does not use caffeine:? Yes what type of physical activity do you participate in:? none seatbelt use:? always do you feel safe at home:? 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 HPI HPI: Patient is a 62-year-old female here for port placement for endometrial cancer ROS General General: Yes fatigue and breast cancer; No weight change, appetite, colon cancer or weakness HEENT HEENT: No difficulty swallowing, eye injury, eye surgery, swollen glands or hoarseness Endo Endocrine: No thyroid disease, diabetes mellitus, thyroid cancer, Hair loss, heat intolerance or cold intolerance Skin Skin: No rash or changing moles Musc Musculoskeletal: Yes arthritis Cardio Cardiovascular: No murmur, pacemaker, heart disease, atrial fibrillation, high blood pressure, heart attack, heart stent, palpitations, shortness of breat with exertion or chest pain Psych Psychiatric: No depression, anxiety or hearing voices Resp Respiratory: No shortness of breath, No sleep apnea, No cough, No COPD, No asthma, No emphysema and No wheezing Gastro Gastrointestinal: No abdominal pain, No nausea or vomiting, No diarrhea, No constipation, No blood in stool, No acid reflux, No hemorrhoids, No ulcers, No gallbladder problem and No black,tarry stools Edvin Hematologic: No blood thinners, No blood disorders, No bleeding, No anemia and No blood clots Neuro Neurologic: No system reviewed and no additional complaints, except as documented, No as per HPI, No abnormal gait, No abnormal hearing, No abnormal movements, No abnormal speech, No behavioral changes, No burning sensations, No confusion, No convulsions, No disequilibrium, No dizziness, No localized weakness, No frequent falls, No headache(s), No lack of coordination, No loss of vision, No memory loss, No numbness, No other visual disturbances, No radicular pain, No restless legs, No sensory deficit, No syncope, No tingling, No tremor(s), No weakness and No other Exam Const General: cooperative Orientation: alert and oriented x3 HENMT Head: normal to inspection Neck Neck: normal visual inspection and full ROM Chest Chest palpation & inspection: normal inspection of the chest Resp Effort & Inspection: normal respiratory effort Auscultation: clear to auscultation bilaterally Cardio Rate: regular rate Rhythm: regular rhythm GI Inspection: non-distended Palpation: soft and nontender Skin General: no rashes or lesions noted Neuro General: patient alert and patient oriented x3 Extrem General: full ROM Psych Appearance: grossly normal Mental Status: mental status grossly normal Assessment and Plan Assessment and Plan (1) Endometrial cancer: ?Status:?Chronic ?Comment: S/P Lap WENDY/BSO + sentinel pelvic lymphadenectomy-FIGO stage IB(pT1b pN0 Mx) Endometrioid carcinoma. PET/CT on 10/08/2022 shows 2 R Pelvic adenopathy. Had Laparoscopic surgery with bilateral Pelvic Lymphadenectomy on 11/05/[address] Cohen. Pathology showed mixed endometrioid + serous metastatic disease in Lymph nodes. Began adjuvant therapy with C1 Taxol/Carboplatin IV q21d on 11/26/2022. Comes for C2. Counts and chemistry are OK for therapy. (2) Encounter for insertion of venous access port: ?Status:?Acute Plan Patient has endometrial cancer and requires port for chemotherapy.? I discussed this with her.? She has had her first 2 treatments peripherally but needs central access now.? I discussed port placement in detail as well as the risks of bleeding, infection, line infection or DVT.? Patient understands the risks as well to proceed with chest port placement. Davey Tomlin MD Pager: [facility] [address] [place] [address], [address] [place] [address] Office: I have examined the patient and the H&P has been reviewed. There are no clinical changes since date of exam.
[2022-12-30] MEDS: Lactated Ringers 1,000 ML 15 ML IV (14:16)
[2022-12-30] MEDS: Cefazolin 2 GM in 0.9% Normal Saline 100 ML IV (16:20)
[2022-12-30] MEDS: Bupivacaine Mpf 0.5% 30 ML VIAL (16:22)
[2022-12-30] MEDS: Lidocaine 1% /Epi 1:100 (20ml) 20 ML Vial (16:22)
--- NOTE | 2022-12-30 16:46 | OP.PCM_ITS ---
Report of Operation Date of Procedure: 12/30/22 Pre-Operative Diagnosis: Need for vascular access for chemotherapy Post-Operative Diagnosis: Same Surgery/Procedure Performed:: Ultrasound and fluoroscopy guided right chest port placement utilizing right IJ Description of Procedure: After obtaining informed consent patient was brought back to the operating room MAC anesthesia was induced and the right chest and neck were prepped in normal s terile fashion. Ultrasound was used to evaluate both IJs and the right IJ was selected. Next, using a needle, the right IJ was accessed and a guidewire was passed on into the superior vena cava under fluoroscopy guidance. A small incision was made over the puncture site and the dilator introducer was placed over the guidewire. Next this was capped and the pocket was made for the port. 1% lidocaine with epinephrine was injected in the proposed port site. An incision was made with scalpel. Electrocautery was used to make a pocket under the skin and subcutaneous tissue. Hemostasis was obtained. Next, the catheter was tunneled up to the neck incision site and placed through the introducer. The peel-away introducer was removed and the position of the catheter was confirmed on fluoroscopy. Next, the catheter was trimmed and attached to the port with the locking device. Interrupted 2-0 Vicryl sutures were used to anchor the port to the chest wall and then the port was placed inside the pocket. The pocket was then flushed with saline and the port irrigated with saline. There was good blood return and the port flushed easily. Next, heparin was injected into the port. The skin was closed with subcutaneous interrupted 3-0 Vicryl sutures. A single 3-0 Vicryl sutures placed under the skin at the neck incision site. Steri-Strips were placed as well as op sites. Patient dorian erated procedure well, was taken to PACU in stable condition. Chest x-ray will be obtained. Grafts/Implants Used: 8 Hungarian PowerPort Admit VTE Documentation VTE Mechan Device Prophylaxis: SCD's
--- NOTE | 2022-12-30 16:47 | DCINST_ITS ---
Discharge Instructions Procedure Port-A-Cath Diet Discharge Diet: Light diet - advance as tolerated (Pain medication may cause nausea. You should typically eat light foods as you take your pain medication.) Activity Discharge Activity: Return to Normal Activity and May Shower (with your bandage in place in 1-2 days after surgery. DO NOT SHOWER WHEN YOUR PORT IS ACCESSED.) Dressing / Incision Call your doctor if your incision/area has: Continuous Slow Oozing, Sudden Increased Bleeding, Increased Pain/ Swelling, Increased Redness and Foul Smelling Discharge Call your doctor if you observe: Fever of 101 or Higher Remove Dressing in: 2 days Cleanse incision/area with: Soap & Water Follow Up Care Please Follow Up With: Davey Tomlin MD When: as needed [phone] Test Results: Test results from this visit will be discussed in further detail at your follow- up appointment, if applicable. Discharge Plan Admission Attending Provider: Davey Tomlin Primary Care Provider: Kinsey Kennedy Instructions Additional Instructions / Restrictions: Alternating ibuprofen and Tylenol for pain Discharge Orders/Prescriptions Prescriptions: No Action multivitamin Tablet 1 tab PO DAILY calcium carbonate-vitamin D3 600 mg-25 mcg (1,000 unit) capsule 1 cap PO DAILY tamoxifen 20 mg tablet 20 mg PO DAILY Qty: 90 1RF ondansetron 8 mg tablet,disintegrating 8 mg PO Q8H PRN (Reason: nausea and vomiting) Qty: 30 2RF prochlorperazine maleate 10 mg tablet 10 mg PO Q6H PRN (Reason: nausea and vomiting) Qty: 30 2RF lidocaine-prilocaine 2.5-2.5 % cream 1 applic topical ONCE PRN (Reason: port access) 30 Days Qty: 30 2RF Referrals / Follow Up: Kinsey Kennedy PA [Primary Care Provider] - Disposition Disposition (needs filled in before D/C Order can be placed): Home, Self Care
--- NOTE | 2022-12-30 17:00 | RAD_ITS ---
STUDY: X-RAY CHEST REASON FOR EXAM: Female, 62 years old. line placement -- in pacu TECHNIQUE: AP portable COMPARISON: None. FINDINGS: The lungs are clear and expanded. There is no demonstrated pleural abnormality. Normal size heart. Normal mediastinum and jess. Normal visualized pulmonary arteries. Normal visualized aortic arch and descending thoracic aorta. Mediport catheter noted on the right with tip at the atrial caval junction Dorsal spine demonstrates degenerative changes. Normal visualized ribs, clavicles, and shoulders. There is no demonstrated abnormality of the visualized soft tissue structures of the upper abdomen. RAD/CXR for Line Placement IMPRESSION: No acute cardiopulmonary pathology status post Mediport catheter placement Electronically Signed: Caleb Saldivar MD at 18:02 EST ,
== END 2022-12-30 18:23 | disposition home or self-care (01) ==
LOC: SDC 13:45 → AC 13:45
PROVIDERS: PCP Physician Assistant; Referring Provider Surgery; Visit Provider Surgery
PROC: (CPT 36561; principal; 2022-12-30 14:30)
DX: Z45.2 Encounter for adjustment and management of vascular access device (principal); C77.5 Secondary and unspecified malignant neoplasm of intrapelvic lymph nodes; C54.1 Malignant neoplasm of endometrium
CPT/HCPCS: 36561; 00532; 71045; 77001; J7120; C1788; J2405

== ENCOUNTER → 2023-03-04 | Outpatient (CLI) | payer OTHER, SELFPAY ==
--- NOTE | 2023-03-04 09:07 | BI_ITS ---
MAMMOGRAPHY - BILATERAL DIAGNOSTIC REASON FOR EXAM: Female, 63 years old. Personal history of DCIS PERTINENT HISTORY: Personal history of breast cancer with previous left lumpectomy. TECHNIQUE: Digital examination. Mediolateral oblique (MLO) and craniocaudad (CC) views of both breasts were obtained. CAD: CAD was performed on this study. COMPARISON: 03/14/2022 FINDINGS: Breast Composition: The breasts are heterogeneously dense, which may obscure small masses. There are no dominant masses or suspicious calcifications. There is architectural distortion in the left breast from the previous lumpectomy.. Postsurgical clips noted. No new suspicious solid lesion, or suspicious cluster of calcifications noted. No other significant abnormalities are identified. BI/DIAG MAMM W/CAD, BILAT IMPRESSION: Negative diagnostic mammogram. Yearly followup recommended. ASSESSMENT CATEGORY: BIRADS Category 2: Benign. A letter regarding these results will be sent to the patient by the facility within 30 days. FOLLOW UP RECOMMENDATION: Yearly follow up mammogram recommended. (A) Approximately 10% of breast cancers are not detected by mammography. A normal mammogram should not delay biopsy of a clinically suspicious abnormality. Electronically Signed: Wilmer Mariano MD at 10:40 EDT ,
== END | disposition home or self-care (01) ==
LOC: OPBI 09:06
PROVIDERS: PCP Physician Assistant; Referring Provider Student in an Organized Health Care Education/Training Program; Visit Provider Student in an Organized Health Care Education/Training Program
DX: D05.12 Intraductal carcinoma in situ of left breast (principal)
CPT/HCPCS: 77062; 77066; G0279

== ENCOUNTER → 2023-04-27 | Outpatient (CLI) | payer OTHER, SELFPAY ==
--- NOTE | 2023-04-27 14:50 | CT_ITS ---
EXAM: CT abdomen and pelvis with contrast. HISTORY: f/u metastatic endometrial cancer TECHNIQUE: CT Abdomen And Pelvis W/ Contrast Injection. A radiation dose optimization technique was used for this scan. COMPARISON: CT abdomen and pelvis September 19, 2022. LIMITATIONS: None. LIVER: Several small cysts, similar to the prior exam. GALLBLADDER: Normal. BILE DUCTS: Normal. PANCREAS: Normal. SPLEEN: Normal. ADRENAL GLANDS: Normal. KIDNEYS/URETERS/BLADDER: Normal. AORTA: Normal caliber. BOWEL/MESENTERY: Few diverticula are without evidence of diverticulitis. No small bowel obstruction. APPENDIX: Normal. PERITONEUM: Normal. REPRODUCTIVE ORGANS: Hysterectomy.. BONES/SOFT TISSUES: No acute fracture. OTHER: None. CONCLUSION: No acute abnormality. Electronically Signed: Nate Padilla MD at 22:15 EDT , CT/Abdomen/Pelvis W IV Cont ONLY IMPRESSION: undefined
[2023-04-27] MEDS: 0.9% Saline Lock 10 ML Syringe IV (14:55)
== END | disposition home or self-care (01) ==
LOC: CT 14:39
PROVIDERS: PCP Physician Assistant; Referring Provider Internal Medicine Medical Oncology; Visit Provider Internal Medicine Medical Oncology
DX: C54.1 Malignant neoplasm of endometrium (principal)
CPT/HCPCS: 74177; Q9967; A4216

== ENCOUNTER 2024-01-11 10:18 | Emergency (ER) | payer OTHER, SELFPAY ==
[2024-01-11 10:19] VITALS: BP 136/73; PULSE 109; RESP 18; TEMP 37; O2SAT 100; BMI 25.1
--- NOTE | 2024-01-11 11:09 | RAD_ITS ---
STUDY: X-RAY - PELVIS AND RIGHT HIP REASON FOR EXAM: Female, 63 years old. Trauma TECHNIQUE: 3 views of the pelvis and hip. COMPARISON: None. FINDINGS: There is a non-specific bowel gas pattern. Normal visualized soft tissue structures. Normal bilateral iliac wings, sacroiliac joints and visualized sacrum. There is widening of the lateral aspect of the right inferior pubic ramus. This is a normal variant. Normal pubic symphysis. Normal bilateral ischial tuberosities. Normal visualized femoral head. Normal acetabulum. Normal hip joint. RAD/HIP, UNI W/ Pelvis 2-3 Views IMPRESSION: No acute abnormality is seen. Electronically Signed: Dakota Augustine MD at 11:24 EST ,
--- NOTE | 2024-01-11 11:40 | ED.VIS.LOWEX ---
HPI History of Present Illness Chief Complaint: Lower Extremity Injury Informant: patient Narrative Narrative: Patient is a 63-year-old female presenting for continued right hip and low back pain. 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 Thursday night (5 days ago) she went to check on a cow that was laying down on the cement when another cow pushed her in her right lower back and she fell into a feature off. She hit her right hip and has been having pain and bruising since. Pain is worse when she tries to lay down or goes from laying to sitting. Denies associated numbness or tingling. Denies any bowel or bladder incontinence. Denies any difficulty with her bowel movements or urination. Has been taking ibuprofen and Tylenol with some relief. Had increased relief with 600 mg of ibuprofen. Has bruising around her tailbone but states the pain is worse in her right lower back/top of her buttocks. Does not have pain over her hip itself. Is worried she could have a deep bruise but also worried she could have a fracture. Came in for further evaluation. Does have a history of breast cancer as well as endometrial cancer and is on tamoxifen. Is not on any blood thinners. No other complaints or concerns at this time. [facility] Medical History Abdominal discomfort Abnormal findings on diagnostic imaging of liver and biliary tract Arthritis Cancer CINV (chemotherapy-induced nausea and vomiting) Encounter for education ER+ (estrogen receptor positive status) Genetic testing of female Lesion of liver with high risk for malignant neoplasm Low back pain Low vitamin D level Muscle spasm Non-smoker Osteopenia Osteoporosis PMB (postmenopausal bleeding) Polyarthralgia Post-menopausal Pruritus of both hands Scar tissue Thrombocytosis Home Medications multivitamin 1 tab PO DAILY 03/07/22 [History Last Taken Unknown] ondansetron 8 mg disintegrating tablet 8 mg PO Q8H PRN nausea and vomiting #30 tabs 11/25/22 [Rx Last Taken Unknown] lidocaine-prilocaine 2.5 %-2.5 % topical cream 1 applic topical ONCE PRN port access 30 days #30 grams 12/29/22 [Rx Last Taken Unknown] tamoxifen 20 mg tablet 20 mg PO DAILY #90 tabs 10/26/23 [Rx Last Taken Unknown] ibuprofen 600 mg tablet 600 mg PO Q6H PRN PRN pain #20 TABLETS 01/11/24 [Rx Last Taken Unknown] metaxalone 800 mg tablet 800 mg PO TID PRN muscle pain #20 tabs 01/11/24 [Rx Last Taken Unknown] Allergy/AdvReac Type Severity Reaction Status Date / Time No Known Allergies Allergy Verified 01/11/24 10:19 Surgical History History of hysterectomy History of left breast biopsy History of lymph node excision S/P S/P knee surgery Social History Smoking Status: Never smoker alcohol intake: never substance use type: does not use caffeine: Yes what type of physical activity do you participate in: none seatbelt use: always do you feel safe at home: Yes 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 ROS ED Constitutional Constitutional ED: Denies chills or fever(s) Cardiovascular Cardiovascular: Denies chest pain Respiratory/Chest Respiratory/Chest: Denies cough Gastrointestinal Gastrointestinal: Denies nausea or vomiting Genitourinary Genitourinary ED: Denies dysuria or urinary frequency Musculoskeletal Musculoskeletal: Reports other Details: Right low back pain/buttocks pain Integumentary Reports other Details: Ecchymosis around the tailbone ; Denies rash Neurologic Neurologic: Denies paresthesias or weakness Hematologic/Lymphatic Hematologic/Lymphatic: Denies easy bleeding or easy bruising EXAM Physical Exam Const Vital Signs: 01/11/24 10:19 Temperature 98.6 F Temperature Source Temporal Pulse Rate 109 H Respiratory Rate 18 Blood Pressure 136/73 H Blood Pressure Mean 94 Pulse Ox 100 Positive well nourished and well developed General Appearance ED: well developed and NAD HEENT Reports moist mucous membranes normocephalic and atraumatic Eyes PERRL Neck full ROM and supple Resp normal respiratory effort Cardio regular rate and regular rhythm GI non-tender and non-distended Back/Spine no CVA tenderness Back/Spine Narrative: Mild his palpation of the right SI joint. No spasm appreciated. No significant paraspinal tenderness to palpation Cervical Spine: Negative for cervical spine tenderness Thoracic Spine / Upper Back: Negative for thoracic spinal tenderness Lumbar Spine / Lower Back: straight leg raise negative bilaterally; Negative for lumbar spinal tenderness Extremity normal to inspection and full ROM Extremity Narrative: Pelvis is stable. No pain with range of motion of the hips bilaterally. 5/5 strength with plantar dorsiflexion as well as hip flexion and extension. Neuro oriented x3, moves all extremities and no sensory deficits noted Sensorium / Orientation: alert Motor Exam: strength 5/5 throughout Psych mental status grossly normal Skin no wounds Skin Narrative: Healing ecchymosis around the tailbone, no hematoma palpated or appreciated MDM MDM MDM Narrative Medical decision making narrative: Patient is evaluated for ongoing low back pain. Pain seems to be centered mostly around the SI joints and in the right lower paraspinal region. She appears nontoxic no acute distress. No midline bony tenderness. Will obtain lab and x-ray. Do not appreciate any hematoma on exam. She does have some mild bruising around her sacrum but this is nontender. She denies any difficulties with bowel or bladder function. No cauda equina symptoms. X-ray reviewed by myself as well as radiology does not show any acute fracture. Patient is started on Skelaxin and given a prescription for Motrin 600. She is given a Lidoderm patch in the emergency room. Counseled on return precautions. Encouraged follow-up with primary care doctor if she does not have improvement over the next week for repeat check. Radiography Diagnostic Testing: Clinical Impression(s) from Imaging Studies Hip/Pelvis X-Ray 01/11/24 11:09 IMPRESSION: No acute abnormality is seen. Electronically Signed: Dakota Augustine MD at 11:24 EST , Discharge Plan Triage Chief Complaint: Lower Extremity Injury ED Provider: Leesa Dickey Dx/Rx/DC Orders Clinical Impression: Low back strain, Contusion of right side of back Instructions: ED Back Sprain/Strain, ED Back Contusion Prescriptions: New metaxalone 800 mg tablet 800 mg PO TID PRN (Reason: muscle pain) Qty: 20 0RF ibuprofen 600 mg tablet 600 mg PO Q6H PRN PRN (Reason: pain) Qty: 20 0RF No Action multivitamin Tablet 1 tab PO DAILY ondansetron 8 mg tablet,disintegrating 8 mg PO Q8H PRN (Reason: nausea and vomiting) Qty: 30 2RF lidocaine-prilocaine 2.5-2.5 % cream 1 applic topical ONCE PRN (Reason: port access) 30 Days Qty: 30 2RF tamoxifen 20 mg tablet 20 mg PO DAILY Qty: 90 3RF Primary Care Provider: Kinsey Kennedy Referrals: Kinsey Kennedy, PA [Primary Care Provider] - Activity Restrictions/Additional Instructions: X-ray does not show any broken bones. I suspect this is just a bruise/strain. Continue to take anti-inflammatory such as ibuprofen (you have been prescribed a new prescription for Motrin 600 mg) and alternate with Tylenol. I have also given a muscle relaxer. Follow-up with your primary care doctor if you do not have improvement within the next week. Disposition Disposition: Home, Self Care
--- OUTSIDE RECORDS SUMMARY | 2024-01-11 12:06 | XMS RPT_ITS | CCD ---
Author Name Unknown Address [address] [place] [id number] Organization [facility] Care Team Providers Care Class B Truck Driver Name Role Phone OLGA MANNING Consulting Unavailable ECHO ROSAS Attending Unavailable ECHO ROSAS Primary Care Unavailable ECHO ROSAS Admitting Unavailable PROVIDER, UNKNOWN Consulting Unavailable PROVIDER, UNKNOWN Consulting Unavailable PROVIDER, UNKNOWN Consulting Unavailable OLGA MANNING Consulting Unavailable ECHO ROSAS Attending Unavailable ECHO ROSAS Primary Care Unavailable ECHO ROSAS Admitting Unavailable PROVIDER, UNKNOWN Consulting Unavailable PROVIDER, UNKNOWN Consulting Unavailable PROVIDER, UNKNOWN Consulting Unavailable RENETTA RAMIREZ Attending Unavailable TRU COHEN Attending Unavailable RABIA DARDEN Referring Unavailable TRU COHEN Admitting Unavailable TRU COHEN Attending Unavailable Problems Active Problems Problem Classification Problem Date Documented Date Episodic/Chronic Cancer of uterus (2 sources) Malignant neoplasm of endometrium; Translations: [Malignant neoplasm of endometrium (HCC)] Onset: 10-20-2022 Chronic Other acquired deformities (1 source) Other specified deforming dorsopathies, lumbar region; Translations: [Other specified deforming dorsopathies, lumbar region] Onset: 08-14-2022 Episodic Other screening for suspected conditions (not mental disorders or infectious disease) (2 sources) Abnormal findings on diagnostic imaging of other specified body structures; Translations: [Abnormal findings on diagnostic imaging of other specified body structures] Onset: 10-20-2022 Chronic Residual codes; unclassified (2 sources) Other specified postprocedural states; Translations: [Other specified postprocedural states] Onset: 11-05-2022 Episodic Spondylosis; intervertebral disc disorders; other back problems (1 source) Spinal stenosis, lumbar region without neurogenic claudication; Translations: [Spinal stenosis, lumbar region without neurogenic claudication] Onset: 08-14-2022 Episodic Unclassified (1 source) Low back pain, unspecified; Translations: [Low back pain, unspecified] Onset: 08-14-2022 Past or Other Problems Problem Classification Problem Date Documented Da te Episodic/Chronic Unclassified (1 source) Low back pain, unspecified; Translations: [Low back pain, unspecified] Onset: 08-14-2022 Results Test Name Value Interpretation Reference Range Facil ity Encounters Encounter Date Encounter Type Care Provider Facility Start: 11-05-2022 End: 11-05-2022 ambulatory TRU COHEN [facility] Start: 10-28-2022 End: 10-28-2022 ambulatory RENETTA RAMIREZ [facility] Start: 10-20-2022 End: 10-20-2022 ambulatory TRU [facility] Start: 08-14-2022 End: 08-14-2022 ambulatory [facility] Start: 02-24-2022 End: 02-24-2022 ambulatory [facility] Payers Date Payer Category Payer Unknown [id number] 1960 Unknown [id number] 1960 Unknown [id number] Unknown Clinical Note 11-05-2022 Note Date & Type Note Facility 11-05-2022 Note Patient: Jacqueline cabrales Procedure Summary Date: 11/05/22 Room / Location: [address] Operating Room Anesthesia Start: 849 Anesthesia Stop: 944 Procedure: ROBOTIC PELVIC LYMPH NODE DISSECTION WITH ICG PROTOCOL Diagnosis: Malignant neoplasm of endometrium (HCC) (Malignant neoplasm of endometrium (HCC) [C54.1]) Surgeons: Tru Cohen MD Responsible Provider: Gelacio Calhoun MD Anesthesia Type: general anesthesia, regional ASA Status: 2 Anesthesia Type: general anesthesia, regional Vitals Value Taken Time BP 117/66 11/05/22 0945 Temp 97.1 11/05/22 0948 Pulse 84 11/05/22 0946 Resp 20 11/05/22 0946 SpO2 100 % 11/05/22945 Vitals shown include unvalidated device data. Anesthesia Post Evaluation Patient location during evaluation: PACU Patient participation: complete - patient participated Level of consciousness: sleepy but conscious Pain management: satisfactory to patient Multimodal analgesia pain management approach Airway patency: patent Two or more strategies used to mitigate risk of obstructive sleep apnea Cardiovascular status: acceptable and hemodynamically stable Respiratory status: acceptable and spontaneous ventilation Hydration status: acceptable No notable events documented. MIPS #430 PONV Patient received an inhalational anesthetic (4554F) Patient exhibits three or more risk factors for PONV (4556F) Patient received at leaset 2 prophylactic Rx PONV anti-emtic agents of different classes preop and/or intraop (G9775) MIPS # 424 Perioperative Temperature Management Anesthesia time was less than 60 minutes (4256F) MIPS #477 Multimodal Pain Management Not emergent case Patientw was administered multimodal pain management (two or more drugs and/or interventions excluding systemic opioids) in the periopeartive period occurring at some time between 6 hours prior to anesthesia start time until discharged from PACU (G2148) MIPS #404 Anesthesiology Smoking Abstinence MIPS 404 I completed my handoff to the receiving clinician during which we: 1. Identified the patient 2. Identified the responsible provider 3. Reviewed the pertinent medical history 4. Discussed the surgical course 5. Reviewed intra-op anesthesia management and issues during anesthesia 6. Set expectations for post-procedure period 7. Allowed opportunity for questions and acknowledgement of understanding. [facility] Clinical Note 11-05-2022 Note Date & Type Note Facility 11-05-2022 Note Patient: Jacqueline cabrales Procedure Summary Date: 11/05/22 Room / Location: [address] Operating Room Anesthesia Start: 849 Anesthesia Stop: 944 Procedure: ROBOTIC PELVIC LYMPH NODE DISSECTION WITH ICG PROTOCOL Diagnosis: Malignant neoplasm of endometrium (HCC) (Malignant neoplasm of endometrium (HCC) [C54.1]) Surgeons: Tru Cohen MD Responsible Provider: Gelacio Calhoun MD Anesthesia Type: general anesthesia, regional ASA Status: 2 Anesthesia Type: general anesthesia, regional Vitals Value Taken Time BP 117/66 11/05/22 0945 Temp 97.1 11/05/22 0948 Pulse 84 11/05/22 0946 Resp 20 11/05/22 0946 SpO2 100 % 11/05/22 0946 Vitals shown include unvalidated device data. Anesthesia Post Evaluation Patient location during evaluation: PACU Patient participation: complete - patient participated Level of consciousness: sleepy but conscious Pain management: satisfactory to patient Airway patency: patent Dental Injury: no Cardiovascular status: acceptable, blood pressure returned to baseline and hemodynamically stable Respiratory status: acceptable and spontaneous ventilation Hydration status: euvolemic Nausea/Vomiting: controlled No notable events documented. Patient can be discharged once all PACU criteria has been met. [facility] Clinical Note 11-05-2022 Note Date & Type Note Facility 11-05-2022 Note Airway Date/Time: 11/05/2022 9:06 AM Urgency: scheduled General Information and Staff Patient location during procedure: Procedural Resident/DIRECTOR CENTER: Geronimo Tejada CRNA Performed: DIRECTOR C[facility] Indications and Patient Condition Indications for airway management: anesthesia Sedation level: Asleep Preoxygenated: yes Patient position: sniffing MILS maintained throughout Mask difficulty assessment: 1 - vent by mask Final Airway Details Final airway type: endotracheal airway Successful airway: ETT Cuffed: yes Successful intubation technique: direct laryngoscopy Endotracheal tube insertion site: oral Blade: Tahira Blade size: #3 ETT size (mm): 7.0 Cormack-Lehane Classification: grade IIb - view of arytenoids or posterior of glottis only Placement verified by: capnometry Measured from: lips ETT to lips (cm): 21 [facility] Clinical Note 11-05-2022 Note Date & Type Note Facility 11-05-2022 Note Peripheral Block Time Out: 11/05/2022 8:54 AM Patient location during procedure: Procedural Start time: 11/05/2022 8:54 AM End time: 11/05/2022 8:56 AM Reason for block: at surgeon's request and post-op pain management Staffing Performed: DIRECTOR CENTER Preanesthetic Checklist Completed: patient identified, IV checked, site marked, risks and benefits discussed, surgical consent, monitors and equipment checked, pre-op evaluation and timeout performed Region: [place] Primary: TAP (Bupivacaine 0.375%/ Epi 1:200,000/ Dex 0.1mg/mL 40ml divided evenly bilateral) Secondary: Upper rectus (Bupivacaine 0.375%/ Epi 1:200,000/ Dex 0.1mg/mL 20ml divided evenly bilateral) Peripheral Block Patient position: supine Prep: ChloraPrep Patient monitoring: heart rate, monitor tech, continuous pulse ox and continuous capnometry O2: ETT/LMA Laterality: bilateral Injection technique: single-shot Guidance: ultrasound guided -image retained in chart, tip of the needle identified by ultraound during injection. Needle Needle: 21G X 110 mm Additional Notes 11/05/2022 8:54 AM Assessment Injection assessment: negative aspiration for heme, no paresthesia on injection and incremental injection Heart rate change: no Slow fractionated injection: yes Required Documentation: Relevant anatomy identified (Nerves, Vessels, Muscles), Negative for blood on aspiration, Local anesthetic injected incrementally with intermittent aspiration every 5 mL, Normal resistance with injection, No EKG changes noted, No symptoms of toxicity, Local anesthetic spread visualized around nerves or plane. and Local anesthetic injected without difficulty [facility] Clinical Note 11-05-2022 Note Date & Type Note Facility 11-05-2022 Note Patient: Jacqueline cabrales Procedure Information Date/Time: 11/05/22929 Procedure: ROBOTIC PELVIC LYMPH NODE DISSECTION WITH ICG PROTOCOL Location: [facility] [address] [place] [address] Operating Room Surgeons: Tru Cohen MD Relevant Problems Other (+) Endometrial ca (CMS/HCC) (HCC) Past Medical History: Past Medical History: No date: Cancer (CMS/HCC) (HCC) Comment: endometrial, left breast No date: Low back pain No date: Low vitamin D level No date: Osteopenia No date: PMB (postmenopausal bleeding) No date: Polyarthralgia No date: Scar tissue No date: Thrombocytosis Past Surgical History: Past Surgical History: 04/07/2022: BREAST BIOPSY; Left Comment: left breast lumpectomy ([place]) No date: DILATION AND CURETTAGE OF UTERUS 04/12/2022: HYSTERECTOMY Comment: ROBOTIC BSO No date: KNEE SURGERY Comment: unsure which side; many years ago Social History: TOBACCO: reports that she has never smoked. She has never used smokeless tobacco. ETOH: reports no history of alcohol use. Social History Substance and Sexual Activity Drug Use Never Family History: Family History Problem Relation Name Age of Onset ? Hypertension Father ? Kidney cancer Father ? Gallbladder disease Paternal Grandmother cancer Screening: Hysterectomy Clinical information reviewed: Tobacco Allergies Meds Med Hx Surg Hx Fam Hx Soc Hx Physical Exam Airway Mallampati: III TM distance: >3 FB Neck ROM: full Mouth Open: normal Cardiovascular Dental Pulmonary Abdominal Anesthesia Plan ASA 2 general anesthesia and regional The patient is not a current smoker. Anesthetic plan and risks discussed with patient. Use of blood products discussed with who consented to blood products. patient is NPO LUIS ALBERTO Screening Labs: Lab Results Component Value Date WBC 13.2 (H) 11/05/2022 HGB 12.9 11/05/2022 HCT 38.9 11/05/2022 MCV 89.8 11/05/2022 PLT 380 11/05/2022 No results found for: NA, K, CL, CO2, BUN, CREATININE, GLUCOSE, CALCIUM, PROT, BILIRUBINFL, ALKPHOS, AST, ALT, EGFR, GLOB No components found for: LVEF, LVEFMODE No echocardiogram results found for the past 14 days No results found for this or any previous visit. [facility] Clinical Note 10-28-2022 Note Date & Type Note Facility 10-28-2022 Note Patient: Jacqueline cabrales Procedure Information Date/Time: 10/28/22 1100 Scheduled providers: Renetta Ramirez RN Procedure: PAT OPTIMIZATION CALL Location: [facility] Pre-Admit Testing Relevant Problems Other (+) Endometrial ca (CMS/HCC) (HCC) Past Medical History: Past Medical History: No date: Cancer (CMS/HCC) (HCC) Comment: endometrial, left breast No date: Low back pain No date: Low vitamin D level No date: Osteopenia No date: PMB (postmenopausal bleeding) No date: Polyarthralgia No date: Scar tissue No date: Thrombocytosis Past Surgical History: Past Surgical History: 04/07/2022: BREAST BIOPSY; Left Comment: left breast lumpectomy ([place]) No date: DILATION AND CURETTAGE OF UTERUS 04/12/2022: HYSTERECTOMY Comment: ROBOTIC BSO No date: KNEE SURGERY Comment: unsure which side; many years ago Social History: TOBACCO: reports that she has never smoked. She has never used smokeless tobacco. ETOH: reports no history of alcohol use. Social History Substance and Sexual Activity Drug Use Never Family History: Family History Problem Relation Name Age of Onset ? Hypertension Father ? Kidney cancer Father ? Gallbladder disease Paternal Grandmother cancer Screening: Hysterectomy Clinical information reviewed: Tobacco Allergies Meds Med Hx Surg Hx OB Status Fam Hx Soc Hx Physical Exam Anesthesia Plan ASA 3 general anesthesia and regional Short ERAS LUIS ALBERTO Screening Labs: Lab Results Component Value Date WBC 8.9 04/12/2022 HGB 13.1 04/12/2022 MCV 87.7 04/12/2022 No results found for: NA, K, CL, CO2, BUN, CREATININE, GLUCOSE, CALCIUM, PROT, BILIRUBINFL, ALKPHOS, AST, ALT, EGFR, GLOB No components found for: LVEF, LVEFMODE No echocardiogram results found for the past 14 days No results found for this or any previous visit. [facility] Summary Purpose Family History No Family History Records FoundNo Family History Records FoundNo Family History Records FoundNo Family History Records Found Advance Directives No Advanced Directives Records FoundNo Advanced Directives Records FoundNo Advanced Directives Records FoundNo Advanced Directives Records Found Additional Source Comments INFORMATION SOURCE (unrecogn ized section and content) DATE CREATED AUTHOR AUTHOR'S OR[facility]IZ ATION [facility] [facility] DATE CREATED AUTHOR AUTHOR'S ORGANIZ ATION 08/24/2022 [facility] DATE CREATED AUTHOR AUTHOR'S ORGANIZ ATION 11/18/2022 [employer] [facility] FOR RECORDS PERTAINING TO PATIENTS WHO ARE OR HAVE BEEN ENROLLED IN A CHEMICAL DEPENDENCY/SUBSTANCEABUSE PROGRAM, SOME INFORMATION MAY BE OMITTED. This clinical summary was aggregated from multiple sources. Caution should be exercised in using it in the provision of clinical care. This summary normalizes information from multiple sources, and as a consequence, information in this document may materially change the coding, format and clinical context of patient data. In addition, data may be omitted in some cases. CLINICAL DECISIONS SHOULD BE BASED ON THE PRIMARY CLINICAL RECORDS. [facility]. provides no warranty or guarantee of the accuracy or completeness of information in this document.
[2024-01-11] MEDS: Lidocaine 5% Patch 1 PATCH TOPICAL (13:09)
[2024-01-11 13:18] VITALS: BP 128/79; PULSE 64; RESP 16; TEMP 36.4; O2SAT 99
== END 2024-01-11 13:36 | disposition home or self-care (01) ==
PROVIDERS: Emergency Provider Emergency Medicine; PCP Physician Assistant; Visit Provider Emergency Medicine
DX: S39.012A Strain of muscle, fascia and tendon of lower back, initial encounter (principal); S70.01XA Contusion of right hip, initial encounter; S30.0XXA Contusion of lower back and pelvis, initial encounter; S20.221A Contusion of right back wall of thorax, initial encounter; W55.22XA Struck by cow, initial encounter; Y99.0 Civilian activity done for income or pay; Y92.79 Other farm location as the place of occurrence of the external cause
CPT/HCPCS: 73502; 99283

== ENCOUNTER → 2024-03-07 | Outpatient (CLI) | payer OTHER, SELFPAY ==
--- NOTE | 2024-03-07 13:04 | BI_ITS ---
MAMMOGRAPHY - BILATERAL SCREENING REASON FOR EXAM: Female, 64 years old. Routine annual screening examination. PERTINENT HISTORY: Personal history of breast cancer. Left lumpectomy with radiation treatment. Sister with breast cancer. Patient also has a history of prior endometrial carcinoma. Prior left stereotactic breast biopsy. TECHNIQUE: Digital bilateral breast analia (3D mammographic acquisition) in the CC and MLO projections. 2-D mediolateral oblique (MLO) and craniocaudad (CC) views of both breasts were obtained. CAD: Full Field Digital Mammography with Computer Added Detection was performed. COMPARISON: Comparison is made with prior study dated March 04, 2023 and April 07, 2022. FINDINGS: Breast Composition: The breasts are heterogeneously dense, which may obscure small masses. There are no dominant masses or suspicious calcifications. Stable architectural distortion in the deep left mid breast in keeping with prior lumpectomy. A tissue clip marker is seen at that site. No other significant abnormalities are identified. There has been no significant change since the prior study. BI/SCRN MAMM (CAD)W/ANALIA BILAT IMPRESSION: Stable bilateral screening mammogram. Yearly follow-up mammogram recommended. (A) ASSESSMENT CATEGORY: BIRADS Category 2: Benign. A letter regarding these results will be sent to the patient by the facility within 30 days. Approximately 10% of breast cancers are not detected by mammography. A normal mammogram should not delay biopsy of a clinically suspicious abnormality. [id number] Electronically Signed: Dakota Augustine MD at 14:05 EDT ,
== END | disposition home or self-care (01) ==
LOC: OPBI 13:04
PROVIDERS: PCP Physician Assistant; Referring Provider Student in an Organized Health Care Education/Training Program; Visit Provider Student in an Organized Health Care Education/Training Program
DX: Z12.31 Encounter for screening mammogram for malignant neoplasm of breast (principal)
CPT/HCPCS: 77063; 77067

== ENCOUNTER → 2025-03-13 | Outpatient (CLI) | payer MEDICARE, OTHER, SELFPAY ==
--- NOTE | 2025-03-13 12:30 | BI_ITS ---
EXAM: SCRN MAMM (CAD)W/ANALIA BILAT DATE: 03/13/2025 CLINICAL HISTORY: F, Age 65 y/o , ANNUAL SCREENING, H/O BREAST CANCER Patient has a history of left breast cancer. She had a lumpectomy with radiation therapy. She also has a personal history of endometrial cancer. Patient has a sister and a niece who were diagnosed with breast cancer. BREAST CANCER RISK ASSESSMENT: Has not been calculated. TECHNIQUE: Bilateral screening digital breast tomosynthesis with 2D and 3D images. Computer aided detection. COMPARISON: None. The patient reportedly has had a prior mammogram study in 2023. We will attempt to obtain those images. If they do become available for review, an addendum will be dictated. FINDINGS: TISSUE DENSITY: The breast tissue is composed of scattered area of fibroglandular density. Bilateral Breast Mammographic Findings: There are no suspicious masses, suspicious clustered microcalcifications, architectural distortion or secondary signs of malignancy identified in the right breast. Benign round microcalcifications are seen in the right breast. Stable nodular densities are seen. Architectural distortion, increased density and surgical clips are seen in the superior outer, far posterior aspect of the left breast. This does correspond to the prior lumpectomy and radiation site and appears stable. A benign macrocalcification is seen in the retroareolar region of the left breast. There is no mammographic abnormality in the left breast to suggest new or reoccurring malignancy. BI/SCRN MAMM (CAD)W/ANALIA BILAT IMPRESSION: OVERALL FINAL ASSESSMENT: BIRADS 2 BENIGN FINDING RECOMMENDATION: Routine annual follow-up in 1 Year We will attempt to obtain the prior mammogra m study. If it does become available for review, an addendum will be dictated. A letter with findings and recommendations will be mailed to the patient. Reading Location: [id number]
== END | disposition home or self-care (01) ==
LOC: OPBI 10:20
PROVIDERS: PCP Physician Assistant; Referring Provider Student in an Organized Health Care Education/Training Program; Visit Provider Student in an Organized Health Care Education/Training Program
DX: Z12.31 Encounter for screening mammogram for malignant neoplasm of breast (principal); D05.12 Intraductal carcinoma in situ of left breast
CPT/HCPCS: 77063; 77067

== ENCOUNTER → 2025-04-24 | Outpatient (CLI) | payer MEDICARE, OTHER, SELFPAY ==
--- NOTE | 2025-04-24 12:22 | VDLE_ITS ---
Reason For Study Reason For Study: Right leg swelling RIGHT LEFT GSV is normal. CFV is compressible, spontaneous, phasic, competent, CFV is compressible, spontaneous, phasic, competent and demonstrates normal augmentation. and demonstrates normal augmentation. FV is compressible, spontaneous, phasic, competent and demonstrates normal augmentation. POP V is compressible, spontaneous, phasic, competent and demonstrates normal augmentation. T/P Trunk is compressible. PTV is compressible. RT PerV is compressible. Procedure This is a venous duplex using B-mode, color flow and spectral Doppler. Exam performed in department. A preliminary report was called and/or faxed to Dr. Martinez. VL/Venous Duplex US, Unilateral Interpretation Summary Deep veins of the right lower extremity are patent and compressible segmentally . There is no evidence of right lower extremity deep vein thrombosis. Valvular competence appears intact within the p roximal deep venous system on the right . The right great saphenous vein appears patent and compressible segmentally. The left common femoral vein is patent and compressible . Ordering Physician: Anderson Martinez Referring Physician: Kinsey Kennedy Performed By: Annmarie Martinez RVT
== END | disposition home or self-care (01) ==
LOC: CVS 12:22
PROVIDERS: PCP Physician Assistant; Referring Provider Student in an Organized Health Care Education/Training Program; Visit Provider Student in an Organized Health Care Education/Training Program
DX: M79.89 Other specified soft tissue disorders (principal); D05.12 Intraductal carcinoma in situ of left breast
CPT/HCPCS: 93971

== ENCOUNTER 2025-07-03 11:20 | Outpatient (RCR) | payer MEDICARE, OTHER, SELFPAY ==
--- NOTE | 2025-06-13 14:13 | HP.OTEVAL_ITS ---
Patient's Visit Information Visit Information Visit Information: JACQUELINE INMAN is a 65 year old F, referred to Occupational Therapy by Dr. Anderson Martinez DO, with a diagnosis of Lymphedema. Date of Evaluation: 06/13/25 Occupational Therapist: Evelyn Garcia Subjective Subjective: This 65 year old female arrives with dx of lymphedema RLE. 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 From 06/09/2022 ? 06/30/2022 she received adjuvant whole breast radiation to the left breast. She was found to have metastatic adenopathy in the pelvis from endometrial cancer status post lymph node dissection (11/05/2022) and adjuvant carboplatin/Taxol x6 cycles (11/26/2022 - February 2023). She now has evidence of recurrent endometrial cancer in the pelvis s/p CT A/P and PET scan. Pt noted increase in swelling 04/23/25 RLE. 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 Pt is here to learn lymphedema management and options for compression garments. Objective Objective/Observation: pt arrives with RLE visibly more swollen then L however skin appears healthy with no wounds. Lymphedema (Circumferential Measure) Mid-foot: R 21.5cm L 20 cm Ankle: R 27 cm L 23.5 cm Lower calf: R 30 cm L 28 cm Largest calf: R 41 cm L 35 cm Below knee: R 41 cm L 33 cm Above knee: R 47 cm L 39 cm Mid-thigh: R 53 cm L 37 cm Goals Goal: Patient will demonstrate a 20% reduction in edema by discharge: Yes Goal: Patient will demonstrate adequate knowledge of self-massage by the end of the second week.: Yes Goal: Patient will demonstrate adequate knowledge of skin care and precautions by the end of the first week.: Yes Goal: Patient will demonstrate adequate knowledge of therapeutic exercises by discharge.: Yes Goal: Patient will select an appropriate compression garment and demonstrate adequate knowledge of correct donning technique, care and wearing schedule by discharge.: Yes Goal: Patient will voice understanding of need to replace compression garment every four to six months by discharge.: Yes Rehabilitation General Assessment: This 65 year old female arrives with dx of Lymphedema. Pt presents with swelling of R LE impacting day to day function. pt would benefit from OT services 3-4 session in 3 month period in order to educate on dx, provide options for compression garments, self massage, LE exercise, skin care and prevention of infection. Rehabilitation Potential: Good Anticipated Interventions Anticipated Interventions: Education re Diagnosis, Education re Life-long lymphedema Management, Education re Skin Care and Precautions, Education re Self Massage Techniques, Education re Correct Donning Tech,Care&Wearing Sched Comp G arments, Caregiver Training and Home Program Visit Plan Frequency: 3-4 sessions Duration: 3 Months General Plan: compression garment at night self massage LE exercise TEXT: Thank you for the opportunity to evaluate your patient. For Medicare and Medicare HMO plans, please review the plan of care and approve it. It will need to be FAXED BACK to us at [phone] for Medicare purposes. Please let me know if there are questions or concerns regarding this plan of care. Physician Signature: Date:
== END 2025-07-03 19:00 | disposition home or self-care (01) ==
LOC: RAO 11:20
PROVIDERS: PCP Physician Assistant; Referring Provider Student in an Organized Health Care Education/Training Program; Visit Provider Student in an Organized Health Care Education/Training Program
DX: M79.89 Other specified soft tissue disorders (principal)
CPT/HCPCS: 97165; 97530

== ENCOUNTER → 2025-10-05 | Outpatient (CLI) | payer MEDICARE, OTHER, SELFPAY ==
--- NOTE | 2025-10-05 13:10 | CT_ITS ---
PROCEDURE: ABDOMEN/PELVIS W IV CONT ONLY 10/05/2025 REASON FOR EXAM: HX OF ENDOMETRIAL CA TECHNIQUE: Procedure Code: [id number] Modality: CT Procedure: ABDOMEN/PELVIS W IV CONT ONLY Coronal and Sagittal reconstruction series were provided. CONTRAST: Isovue 370 VOLUME: 75 mL One or more dose reduction techniques were used (e.g., Automated exposure control, adjustment of the mA and/or kV according to patient size, use of iterative reconstruction technique. RADIATION DOSE SUMMARY: CTDlvol: 7.54 mGy DLP: 345.89 mGycm COMPARISON: CT abdomen and pelvis 04/28/2025. FINDINGS: Lung bases: Clear. Liver: Stable few indeterminate liver cysts with the largest measures 9 mm in the left hepatic lobe. Gallbladder: Unremarkable. No biliary dilation. Spleen: Unremarkable. Pancreas: Unremarkable. Adrenals: Unremarkable. Kidneys: Unremarkable. No suspicious masses. No hydronephrosis or nephrolithiasis. Bladder: Mild fat stranding surrounding the bladder concerning for urinary tract infection. Reproductive Organs: Unremarkable. Bowel: No bowel wall thickening. No bowel obstruction. Colonic diverticulosis. No evidence of acute diverticulitis. Appendix: Normal. Lymph nodes: Decrease in size in right external iliac suspicious lymph node now measures 2.3 cm in maximal diameter, previously measured 3.3 cm. No additional suspicious lymphadenopathy. Vasculature: No aneurysm. No dissection. Peritoneum / Retroperitoneum: No free air or free fluid. Bones: No acute bony abnormalities. CT/Abdomen/Pelvis W IV Cont ONLY IMPRESSION: Compared to CT scan 04/28/2025; Decrease in size in right external iliac suspicious lymph node now measures 2.3 cm in maximal diameter, previously measured 3.3 cm. No additional suspicious lymphadenopathy. Stable few indeterminate liver cysts with the largest measures 9 mm in the left hepatic lobe. Mild fat stranding surrounding the bladder concerning for urinary tract infecti on. Please correlate with your urinalysis. Reading Location: [facility]
[2025-10-05] MEDS: 0.9% Saline Lock 10 ML Syringe IV (13:24)
== END | disposition home or self-care (01) ==
LOC: CT 13:03
PROVIDERS: PCP Physician Assistant; Referring Provider Internal Medicine Medical Oncology; Visit Provider Internal Medicine Medical Oncology
DX: C54.1 Malignant neoplasm of endometrium (principal)
CPT/HCPCS: 74177; A4216

== ENCOUNTER → 2025-10-30 | Outpatient (CLI) | payer MEDICARE, OTHER, SELFPAY | END | disposition home or self-care (01) | LOC: LABSPEC 16:27 | PROVIDERS: PCP Physician Assistant; Visit Provider Obstetrics & Gynecology | DX: R30.0 Dysuria (principal) | CPT/HCPCS: 87086; 87088 ==